=== PATIENT | female | born 1940 | race Caucasian/White ===

== ENCOUNTER 2023-02-12 13:30 | Outpatient (CLI) | payer OTHER, MEDICARE, SELFPAY ==
[2023-02-12 14:13] LABS: Alanine Aminotransferase 19 U/L (6-35); Albumin Level 4.2 g/dL (3.5-5.1); Alkaline Phosphatase 45 U/L (38-126); Anion Gap 4 mmol/L (8-16); Aspartate Amino Transferase 21 U/L (14-36); Blood Urea Nitrogen 14 mg/dL (7-17); Calcium 8.9 mg/dL (8.4-10.2); Carbon Dioxide 30 mmol/L (22-30); Chloride 104 mmol/L (98-107); Estimated Glomerular Filt Rate 48; Glucose 91 mg/dL (65-110); Magnesium 1.9 mg/dL (1.6-2.3); Potassium 3.8 mmol/L (3.4-5.0); Sodium 138 mmol/L (137-145)
== END 2023-02-12 13:31 | disposition home or self-care (01) ==
PROVIDERS: PCP Family Medicine Sports Medicine; Visit Provider Family Medicine Sports Medicine
DX: R25.2 Cramp and spasm (principal)
CPT/HCPCS: 36415; 80053; 83735

== ENCOUNTER 2023-07-25 16:55 | Emergency (ER) | payer OTHER, MEDICAID, SELFPAY ==
[2023-07-25 17:05] VITALS: BP 136/81; PULSE 81; RESP 20; TEMP 36.8; O2SAT 99
--- NOTE | 2023-07-25 17:09 | ED.GENADULT ---
HPI - General Adult General Chief complaint: Skin/Abscess/Foreign Body Stated complaint: Rash Time Seen by Provider: 07/25/23 16:59 Source: patient, RN notes reviewed and old records reviewed Mode of arrival: ambulatory Limitations: no limitations History of Present Illness HPI narrative: 83-year-old female presents to [facility] with complaint of rash to left arm and right leg this started 5 weeks ago. Patient states rash is pruritic. Patient states think she is scratching sleep. Patient seen by primary care physician and states was given lorazepam and Banophen. Patient states has had no improvement. patient and patient's granddaughter requesting strep test, states knew someone who got a rash from strep. MD complaint: Steroids as directed. Cetirizine (Zyrtec) daily Can take Benadryl at nig Onset (ago): week(s) (5) Location: upper extremity and lower extremity Related Data Home Medications Medication Instructions Recorded Confirmed albuterol sulfate 90 mcg/actuation inhalation 07/25/23 07/25/23 aerosol inhaler amlodipine 5 mg tablet mg 07/25/23 apixaban 5 mg tablet (Eliquis) mg 07/25/23 atorvastatin 40 mg tablet mg 07/25/23 enalapril maleate 20 mg tablet mg 07/25/23 fluticasone fur. 200 mcg-umeclid inhalation 07/25/23 62.5 mcg-vilant 25 mcg inhalat.powder (Trelegy Ellipta) furosemide 40 mg tablet mg 07/25/23 isosorbide mononitrate 60 mg mg PO 07/25/23 tablet,extended release 24 hr metoprolol succinate 100 mg mg PO 07/25/23 tablet,extended release 24 hr pantoprazole 40 mg tablet,delayed mg PO 07/25/23 release potassium chloride 10 mEq meq 07/25/23 capsule,extended release sucralfate 1 gram tablet 07/25/23 Allergies Allergy/AdvReac Type Severity Reaction Status Date / Time Honey Bee Allergy Intermediate HIVES Uncoded 07/25/23 17:22 Review of Systems Constitutional: Constitutional: Reports no additional constitutional complaints and Denies fever(s) Eyes: Eyes: Reports no additional eye complaints ENT: Reports system reviewed and no additional complaints, except as documented and Denies sore throat Cardiovascular: Cardiovascular: Reports no additional cardiovascular complaints Respiratory: Respiratory: Reports no additional respiratory complaints Integumentary/Breasts: Skin/Breast: Reports pruritus, Reports lesions and Reports rash Neurologic: Reports system reviewed and no additional complaints, except as documented PMFSH Past Medical History Medical History High cholesterol Hypertension Comments At the time of my signature, I reviewed and agree with the nursing past medical, surgical, social, and family history. There is no relevant family history pertinent to the patient complaint. Exam Const: General: cooperative, healthy appearing, no acute distress and well nourished Nutritional Appearance: well nourished Orientation/consciousness: patient oriented x3 Limitations: no limitations HENMT: Head: normal to inspection and normocephalic Ears: external ears normal, TM's normal bilaterally, mastoids normal and Abnormal EAC present Face/Nose/Sinus: normal facial exam Face and sinus: normal facial exam Mouth: Yes Normal oral and palatal mucosa present, Yes oropharynx normal and Yes moist mucous membranes Throat: posterior oropharynx normal, tonsils normal, uvula midline and no uvular edema Eyes: General: appearance normal, both eyes and all related structures Sclera: sclerae normal Pupils: Equal, round and reactive pupils present Resp: Effort & Inspection: normal respiratory effort, able to speak in complete sentences, no audible wheezes, no cough, no respiratory distress and no retractions Auscultation: clear to auscultation bilaterally, no crackles, no rales, no rhonchi and no wheezes Cardio: Rate: regular rate Rhythm: regular rhythm Skin: General skin exam: erythema, excoriation and rashes Neuro: Gener
== END 2023-07-25 17:38 | disposition home or self-care (01) ==
PROVIDERS: Emergency Provider Nurse Practitioner; PCP Family Medicine Sports Medicine
DX: L23.9 Allergic contact dermatitis, unspecified cause (principal); E78.00 Pure hypercholesterolemia, unspecified; I10 Essential (primary) hypertension
CPT/HCPCS: 87880; 99213; G0463

== ENCOUNTER 2025-07-16 18:24 | Inpatient (IN) | payer OTHER, MEDICAID, SELFPAY ==
[2025-07-16] VITALS (20 sets, daily range): BP systolic 113–156; BP diastolic 73–83; PULSE 70–87; RESP 15–35; TEMP 37.5; O2SAT 90–95
--- NOTE | ~2025-07-16 | XR_ITS ---
EXAMINATION: XR chest 2V, 07/16/2025 18:50 AUDIOVISUAL TECHNICIAN HISTORY: SOB, cough COMPARISON: No comparisons available. Technique: 2 views obtained. Findings: Moderate pulmonary venous congestion. Bilateral infiltrates most marked left lower lobe. No pneumothorax. Moderate cardiomegaly. Mediastinal and hilar contours are within normal limits. Poststernotomy. Right pacemaker. Impression: CHF. Superimposed probable pneumonia Reviewed, dictated and finalized at location P. OVISUAL TECHNICIAN Impression: CHF. Superimposed probable pneumonia
--- OUTSIDE RECORDS SUMMARY | 2025-07-16 17:45 | XMS_ITS | Encounter Summary ---
Author Organization [facility] Address [address] [place] [address] Care Team Providers Care Rate Clerk Passenger Name Role Phone Giles Ronquillo MD Unavailable Giles Ronquillo MD Primary Care Provider [phone] Reason for Visit * Reason Comments Sick Visit Encounter Details Date Type Department Care Team (Late st Contact Info) Description 07/16/2025 5:45 PM RV SERVICE TECHNICIAN Office Visit [facility] at [address] [address] Kandy Perez NP 2 [facility] [address] [place] [address] Shortness of breath (Primary Dx); History of COPD; History of CHF (congestive heart failure); Nausea and vomiting, unspecified vomiting type Social History Tobacco Use Types Packs/Day Years Used Date Smoking Tobacco: Former Personal Safety Answer Date Recorded Have you ever been in or are you currently in a harmful physical or emotional relationship or is someone making you feel afraid or unsafe? Denies 01/26/2023 Comments Unknown Sex and Gender Information Value Date Recorded Sex Assigned at Not on file Legal Sex Female 4:20 AM RV SERVICE TECHNICIAN Gender Identity Not on file Sexual Orientation Not on file documented as of this encounter Last Filed Vital Signs Vital Sign Reading Time Taken Comments Blood Pressure 138/84 07/16/2025 5:40 PM RV SERVICE TECHNICIAN Pulse 70 07/16/2025 5:40 PM RV SERVICE TECHNICIAN Temperature - - Respiratory Rate 28 07/16/2025 5:40 PM RV SERVICE TECHNICIAN Oxygen Saturation 91% 07/16/2025 5:40 PM RV SERVICE TECHNICIAN Inhaled Oxygen Concentration - - Weight 94 kg (207 lb 4.8 oz) 07/16/2025 5:27 PM RV SERVICE TECHNICIAN Height - - Body Mass Index 36.72 01/26/2023 11:11 AM CDT documented in this encounter Functional Status documented as of this encounter Plan of Treatment Not on file documented as of this encounter Visit Diagnoses Diagnosis Shortness of breath- Primary History of COPD History of CHF (congestive heart failure) Personal history of other diseases of circulatory system Nausea and vomiting, unspecified vomiting type documented in this encounter Administered Medications Inactive Administered Medications - up to 3 most recent administrations Medication Order MAR Action Action Date Dose Rate Site albuterol 2.5 mg /3 mL (0.083 %) nebulizer solution 2.5 mg 2.5 mg, nebulization, Once, On 07/16/25 at 1815, For 1 doseIndications:Shortness of breath Given 07/16/2025 6:00 PM RV SERVICE TECHNICIAN 2.5 mg documented in this encounter Orders Medications Ordered That Eliceo ht Not Have Been Administered Count Last Ordered Date First Ordered Date albuterol 2.5 mg /3 mL (0.08 3 %) nebulizer solution 2.5 mg 1 07/16/2025 documented in this encounter Care Teams Rate Clerk Passenger Relationship Specialty Start Date End Date Giles Ronquillo MD [address] [id number] PCP - General Sports Medicine 06/11/23 Giles Ronquillo MD [address] [facility] [address] [place] [address] 12/16/17 documented as of this encounter
--- NOTE | 2025-07-16 18:27 | ECG_ITS ---
Test Date: 2025-07-16 18:43:29 Measurements Intervals [place] Rate: 73 P: 0 MD: 0 QRS: 265 QRSD: 152 T: -60 QT: 482 QTc: 532 Interpretive Statements ELECTRONIC VENTRICULAR PACEMAKER Electronically Signed On 07-17-2025 00:12:43 COMPUTER FORENSICS TECHNICIAN by Tayo Ventura D.O
[2025-07-16 18:42] LABS: Hematocrit 37.5 % (37.0-47.0); Hemoglobin 11.7 g/dL (12.0-15.0); Immature Granulocyte Percent A 0.4 % (0-0.5); Lymphocytes Absolute Auto 1.54 K/mm3 (0.9-3.2); Mean Corpuscular HGB Conc 31.2 g/dl (32-36); Mean Corpuscular Hemoglobin 25.1 pg (26-34); Mean Corpuscular Volume 80.3 fl (80-100); Nucleated Red Blood Cells Absolute Auto 0.000 K/mm3 (0.0-0.012); Nucleated Red Blood Cells Perc 0.0 % (0.0-0.2); Platelet Count Result 331 k/mm3 (150-375); Red Blood Count 4.67 M/mm3 (4.2-5.4); White Blood Count 20.3 K/mm3 (4.5-10.0)
[2025-07-16 18:59] LABS: Alanine Aminotransferase 16 U/L (6-35); Albumin Level 4.3 g/dL (3.5-5.1); Alkaline Phosphatase 62 U/L (38-126); Anion Gap 11 mmol/L (4-12); Aspartate Amino Transferase 20 U/L (14-36); Bilirubin,Total 3.3 mg/dL (0.2-1.3); Blood Urea Nitrogen 11 mg/dL (7-17); Calcium 9.1 mg/dL (8.4-10.2); Carbon Dioxide 22 mmol/L (22-30); Chloride 103 mmol/L (98-107); Estimated CRCL calculation 54 ml/min; Estimated Glomerular Filt Rate > 60; Glucose 135 mg/dL (65-110); Potassium 3.5 mmol/L (3.4-5.0); Sodium 136 mmol/L (137-145); Total Protein 8.0 g/dL (6.3-8.2)
[2025-07-16 19:02] LABS: Ovalocytes Occasional; Schistocytes None Seen
--- OUTSIDE RECORDS SUMMARY | 2025-07-16 19:18 | XMS_ITS | Patient Health Record ---
Author Organization [facility] Address [address] [place], [place] [id number] Care Team Providers Care Community Health Specialist Name Role Phone DELILAH Christy Unavailable Reason For Referral No Information Medications Medication SIG (Take, Route, Frequency, Duration) Notes Start Date End Date Status clobetasol propionate 0.0005 MG/MG Topical Ointment CUTANEOUS clobetasol propionate 0.0005 MG/MG Topical OintmentOriginal Medicationclobetasol propionate 0.0005 MG/MG Topical Ointment *Reorder from [employer] for eRx and Interaction Alerts* 09/14/2013 Active Social History Social History Additional Details Category Social Info Options Details Migrated Social History Migrated Social History History of tobacco use : , Smoking Status : Former smoker Plan Of Treatment No Information Insurance Providers Payer Name Payer Address Payer Phone Subscriber Number Group Number Insured Name Patient Relationship to Insured Coverage Start Date Coverage End Date [employer]. [address] [place] [id number] [employer] Self - patient is the insured
--- OUTSIDE RECORDS SUMMARY | 2025-07-16 19:18 | XMS_ITS | Clinical Summary ---
Author Organization [facility] Address [address] [place] [address] Phone Care Team Providers Care Weather Forcaster Name Role Phone Giles Ronquillo MD Unavailable Giles Ronquillo MD Primary Care Provider [phone] Allergies Active Allergy Reactions Criticality Noted Date Comments Venom-Honey Bee Swelling High 07/16/2018 Wasp Venom Swelling High 04/12/2020 Medications PROAIR HFA 90 mcg/actuation inhaler 02/13/2018 Active calcium carbonate-vitami n D3 (CALCIUM 600 + D,3,) 600 mg calcium- 200 unit capsule Take 1 tablet by mouth. 09/28/2014 Active cranberry 500 mg capsule Take 500 mg by mouth. 09/28/2014 Active enalapril (VASOTEC) 20 mg tablet Take 20 mg by mouth. 03/05/2018 Active furosemide (LASIX) 40 mg tablet Take 40 mg by mouth. 03/08/2018 Active isosorbide mononitrate ER (IMDUR) 30 mg 24 hr tablet 03/05/2018 Active lutein-zeaxanthi n 25-5 mg capsule Take 1 tablet by mouth. 03/02/2013 Active metoprolol (LOPRESSOR) 50 mg tablet 03/05/2018 Active nitroglycerin (NITROSTAT) 0.4 mg SL tablet 12/15/[address] (PROTONIX) 40 mg EC tablet Take 40 mg by mouth. 05/07/2017 Active potassium chloride ER (potassium chloride ER) 10 mEq CR tablet Take 10 mEq by mouth. 03/05/2018 Active STIOLTO RESPIMAT 2.5-2.5 mcg/actuation mist 02/13/2018 Active clopidogrel (PLAVIX) 75 mg tablet Take 75 mg by mouth. 08/19/2018 Active atorvastatin (LIPITOR) 80 mg tablet Take 80 mg by mouth daily Active Hospital, Clinic, or Other Facility Administered Medication Ordered Dose Route Frequency Start Date End Date Status albuterol 2.5 mg /3 mL (0.083 %) nebulizer solution 2.5 mgIndications:Shortness of breath 2.5 mg nebu Once 07/16/2025 07/16/2025 Ended Active Problems Problem Noted Date Diagnosed Date Renal mass 07/15/2017 Encounters Date Type Department Care Team Description 07/16/2025 5:45 PM TECHNOLOGY INFUSION SPECIALIST Office Visit [facility] Care at [address] [address] Kandy Perez NP Shortness of breath (Primary Dx); History of COPD; History of CHF (congestive heart failure); Nausea and vomiting, unspecified vomiting type 04/26/2025 11:20 AM CDT Office Visit [facility] [address] [place] [address] Advanced Medicine 11th [place] [address] [place] [address] He Hernandez MD Renal mass (Primary Dx) 04/26/2025 9:32 AM CDT - 04/26/2025 11:59 PM CDT Hospital Encounter [facility] [address] [place] [id number] He Hrenandez MD Renal mass Discharge Disposition: Discharge to home or self care from Last 3 Months Surgical History Surgery Date Site/Laterality Comments CORONARY ARTERY BYPASS GRAFT Medical History Medical History Date Comments Personal history of other di seases of the respiratory system History of asthma - (Added b y TW Conv) Coronary artery disease Congestive heart failure (CHF) (HCC) Family History Medical History Relation Name Comments Heart disease Father Family history of cardiac disorder - (Added by TW Conv) Cancer Mother Family history of cancer - (Added by TW Conv) Heart disease Mother Family history of cardiac disorder - (Added by TW Conv) Relation Name Status Comments Father Mother Social History Tobacco Use Types Packs/Day Years Used Date Smoking Tobacco: Former Tobacco Cessation:Counseling Given: Not Answered Personal Safety Answer Date Recorded Have you ever been in or are you currently in a harmful physical or emotional relationship or is someone making you feel afraid or unsafe? Denies 01/26/2023 Comments Unknown Sex and Gender Information Value Date Recorded Sex Assigned at Not on file Legal Sex Female 4:20 AM TECHNOLOGY INFUSION SPECIALIST Gender Identity Not on file Sexual Orientation Not on file Last Filed Vital Signs Vital Sign Reading Time Taken Comments Blood Pressure 138/84 07/16/2025 5:40 PM TECHNOLOGY INFUSION SPECIALIST Pulse 70 07/16/2025 5:40 PM TECHNOLOGY INFUSION SPECIALIST Temperature 36.6 C (97.8 F) 01/26/2023 11:11 AM CDT Respiratory Rate 28 07/16/2025 5:40 PM TECHNOLOGY INFUSION SPECIALIST Oxygen Saturation 91% 07/16/2025 5:40 PM TECHNOLOGY INFUSION SPECIALIST Inhaled Oxygen Concentration - - Weight 94 kg (207 lb 4.8 oz) 07/16/2025 5:27 PM TECHNOLOGY INFUSION SPECIALIST Height 160 cm (5' 3) 01/26/2023 11:11 AM CDT Body Mass Index 36.72 01/26/2023 11:11 AM CDT Plan of Treatment Health Maintenance Due Date Last Done Comments Depression Screening 1942 Fall Risk Assessment 1942 Hepatitis B Screening 1960 Zoster Vaccine (1 of 2) 1992 Well Visit 65+ 2007 Osteoporosis Screening-Bone Density Scan 09/29/2018 09/29/2016 Covid-19 Vaccine (5 - 2024-2 6 season) 2025 09/06/2024, 06/30/2021, 11/26/2020, Additional history exists Influenza Vaccine (#1) 2025 , 05/13/2023, 04/30/2022, Additional history exists DTaP/Tdap/Td Vaccine (2 - Td or Tdap) 01/03/2026 01/04/2016 Pneumococcal vaccine 65+ Completed 03/21/2016, 10/2013 Procedures Procedure Name Priority Date/Time Associated Diagnosis Comments CT ABDOMEN W WO CONTRAST Schedule Routine, Read Routine (OP Routine) 04/26/2025 10:26 AM CDT Renal mass from Last 3 Months Results * CT Abdomen W WO Contrast (04/26/2025 10:26 AM CDT) Anatomical Region Laterality Modality Body N/A Computed Tomogra phy 04/26/2025 10:4 2 AM CDT Impressions 04/26/2025 10:52 AM CDT Unchanged 1.1 cm probably enhancing right renal lesion which is stable dating back to 2017 and favored to be benign. Dictated by: Uli Jean MD The radiology attending physician has personally reviewed this study, and had reviewed and/or edited this written report and agrees with it. Electronically signed by: Tyron Tello M.D. Narrative 04/26/2025 10:52 AM CDT EXAMINATION: Computed tomography of the abdomen with and without intravenous contrast HISTORY: Follow-up renal lesion TECHNIQUE: Transaxial computed tomographic images of the abdomen were obtained with and without intravenous contrast according to the renal protocol after the uneventful administration of 120 mL Opti-Ray 350 intravenous contrast. COMPARISON: Multiple prior studies most recently CT dated 06/10/2023 FINDINGS: Bibasilar atelectasis. Partially imaged cardiac pacing wires. Unchanged cardiomegaly with right heart enlargement and reflux of contrast into the inferior vena cava and hepatic veins keeping with right heart dysfunction. Heterogeneous enhancement of the liver likely related to right heart dysfunction. No suspicious hepatic mass. Patent portal venous vasculature. Cholecystectomy. No intrahepatic or extra hepatic biliary ductal dilation. Normal spleen, pancreas, and adrenal glands. No hydronephrosis. Unchanged 1.1 cm likely enhancing right renal lesion which is stable dating back to 03/24/2018. Bilateral renal cysts. The imaged portions of bowel are normal in caliber without evidence of obstruction. No ascites or organized fluid collection. No intra-abdominal lymphadenopathy. Normal caliber intra-abdominal aorta with moderate calcified atherosclerosis. No suspicious osseous lesions. Procedure Note Tyron Tello MD - 04/26/2025 EXAMINATION: Computed tomography of the abdomen with and without intravenous contrast HISTORY: Follow-up renal lesion TECHNIQUE: Transaxial computed tomographic images of the abdomen were obtained with and without intravenous contrast according to the renal protocol after the uneventful administration of 120 mL Opti-Ray 350 intravenous contrast. COMPARISON: Multiple prior studies most recently CT dated 06/10/2023 FINDINGS: Bibasilar atelectasis. Partially imaged cardiac pacing wires. Unchanged cardiomegaly with right heart enlargement and reflux of contrast into the inferior vena cava and hepatic veins keeping with right heart dysfunction. Heterogeneous enhancement of the liver likely related to right heart dysfunction. No suspicious hepatic mass. Patent portal venous vasculature. Cholecystectomy. No intrahepatic or extra hepatic biliary ductal dilation. Normal spleen, pancreas, and adrenal glands. No hydronephrosis. Unchanged 1.1 cm likely enhancing right renal lesion which is stable dating back to 03/24/2018. Bilateral renal cysts. The imaged portions of bowel are normal in caliber without evidence of obstruction. No ascites or organized fluid collection. No intra-abdominal lymphadenopathy. Normal caliber intra-abdominal aorta with moderate calcified atherosclerosis. No suspicious osseous lesions. IMPRESSION: Unchanged 1.1 cm probably enhancing right renal lesion which is stable dating back to 2018 and favored to be benign. Dictated by: Uli Jean MD The radiology attending physician has personally reviewed this study, and had reviewed and/or edited this written report and agrees with it. Electronically signed by: Tyron Tello M.D. He Hernandez MD IMG CT PROCEDURES Final R esult from Last 3 Months Insurance [facility] Member Subscriber Plan / Payer (Ef fective 2017-Present) Name:B[employer]ILLA JUSTICE Relation to Subscriber:Self Name:Bonilla Justice Payer ID:[id number] (NAIC) Type:MEDICARE RISK OTHER Address: [address] [place] [id number] [facility] Member Subscriber Plan / Payer (Ef fective 2018-Present) Name:Bonilla Justice Relation to Subscriber:Self Name:Bonilla Justice Payer ID:[id number] (NAIC) Type:MEDICARE RISK OTHER Address: [address] [facility] Member Subscriber Plan / Payer (Ef fective 2018-Present) Name:Bonilla Justice Relation to Subscriber:Self Name:Bonilla Justice Payer ID:[id number] (NAIC) Type:MEDICARE RISK OTHER Address: [address] [place] [id number] [employer] Care Teams Weather Forcaster Relationship Specialty Start Date End Date Giles Ronquillo MD [address] [facility] [address] [place] [address] PCP - General Sports Medicine 06/11/23 Giles Ronquillo MD [address] [facility] [address] [place] [address] 12/16/17
--- OUTSIDE RECORDS SUMMARY | 2025-07-16 19:18 | XMS_ITS | Clinical Summary ---
Author Organization [facility] Address [address], [address] [address] Phone Care Team Providers Care Marketing Regional Consultant Name Role Phone Giles Ronquillo MD Primary Care Provider [phone] Medications sucralfate (CARAFATE) 1 GM Tablet Take 1 Tab by mouth every 6 hours. 120 Tab 3 05/07/2017 Active pantoprazole (PROTONIX) 40 MG Tablet Delayed Response Take 1 Tab by mouth 2 times daily. 60 Tab 2 05/07/2017 Active Social History Tobacco Use Types Packs/Day Years Used Date Smoking Tobacco: Never Assessed Comments Unknown Sex and Gender Information Value Date Recorded Sex Assigned at Not on file Legal Sex Female 8:30 AM CDT Gender Identity Not on file Sexual Orientation Not on file Plan of Treatment Health Maintenance Due Date Last Done Comments Hepatitis C Virus (HCV) Screening 1940 TdaP Immunization 1940 Pneumococcal Immunization (5 0+ years) (1 of 1 - PCV) 1992 Zoster Immunization (1 of 2) 1992 Respiratory Syncytial Virus (RSV) Immunization (Adult) (1 - 1-dose 75+ series) 2017 Medicare Initial AWV [id number] 08/31/2017 Influenza Immunization (#1) 2025 SARS-COV-2 Immunization ( - season) 2025 Hepatitis B Immunization Aged Out No longer eligible based on patient's age to complete this topic Human Papillomavirus (HPV) Immunization Aged Out No longer eligible b ased on patient's age to complete this topic Meningococcal Immunization (ACWY) Aged Out No longer eligible based on patient's age to complete this topic Rotavirus Immunization Aged Out No lo nger eligible based on patient's age to complete this topic Insurance MEDICARE C [employer] Care Teams Marketing Regional Consultant Relationship Specialty Start Date End Date Giles Ronquillo MD [address] [address] PCP - General Family Medicine 05/01/17
--- OUTSIDE RECORDS SUMMARY | 2025-07-16 19:18 | XMS_ITS | Encounter Summary ---
Author Organization [facility] Address [address] [place] [address] Care Team Providers Care Microfilm Processor Name Role Phone Giles Ronquillo MD Primary Care Provider [phone] Reason for Visit * Reason Onset Date Comments Appointment 01/19/2024 Encounter Details Date Type Department Care Team (Late st Contact Info) Description 01/19/2024 Telephone [facility] - General Dermatology [address] [place] [address] Zena Botello MD [address] [facility] [address] [place] [address] Appointment Social History Tobacco Use Types Packs/Day Years Used Date Smoking Tobacco: Unknown AUDIT-C Answer Date Recorded Q1: How often do you have a drink containing alcohol? Never 01/13/2024 Q2: How many drinks containi ng alcohol do you have on a typical day when you are drinking? Patient does not drink Q3: How often do you have si x or more drinks on one occasion? Never 01/13/2024 Overall Financial Resource Strain (CARDIA) Answe r Date Recorded How hard is it for you to pa y for the very basics like food, housing, medical care, and heating? Somewhat hard 01/13/2024 [facility] [place] [facility] Occupat ional Health - Occupational Stress Questionnaire Answer Date Recorded Do you feel stress - tense, restless, nervous, or anxious, or unable to sleep at night because your mind is troubled all the time - these days? Not at all 01/13/2024 Hunger Vital Sign Answer Date Recorded Within the past 12 months, y ou worried that your food would run out before you got the money to buy more. Never true 01/13/20 24 Within the past 12 months, t he food you bought just didn't last and you didn't have money to get more. Never true 01/13/2024 PRAPARE - Transportation Answer Date Re corded In the past 12 months, has l ack of transportation kept you from medical appointments or from getting medications? Yes 12/29 In the past 12 months, has l ack of transportation kept you from meetings, work, or from getting things needed for daily living? Yes 01/13/2024 Housing Stability Vital Sign Answer [place] e Recorded In the last 12 months, was t here a time when you were not able to pay the mortgage or rent on time? No 01/13/2024 In the last 12 months, how many places have you lived? 1 01/13/2024 In the last 12 months, was t here a time when you did not have a steady place to sleep or slept in a fpc (including now)? No 01/13/2024 Comments Unknown Sex and Gender Information Value Date Recorded Sex Assigned at Female 01/15/2024 9:11 PM CDT Legal Sex Female 11:56 AM CDT Gender Identity Female 01/15/2024 9:11 PM CDT Sexual Orientation Not on file documented as of this encounter Functional Status * Is person deaf or have serious hearing difficulty? Answer Date of Assessment Author Yes 01/13/2024 5:27 PM CDT Pamela Lee RN * Is person blind or have serious difficulty seeing? Answer Date of Assessment Author No 01/13/2024 5:27 PM CDT Pamela Lee RN * Does person have serious difficulty walking/climbing stairs? Answer Date of Assessment Author No 01/13/2024 5:27 PM CDT Pamela Lee RN * Does person have difficulty dressing/bathing? Answer Date of Assessment Author No 01/13/2024 5:27 PM CDT Pamela Lee RN * Does person have difficulty doing errands alone? Answer Date of Assessment Author No 01/13/2024 5:27 PM CDT Pamela Lee RN documented as of this encounter Mental Status * Does person have difficulty concentrating/remembering/making decisions? Answer Entry Date Author No 01/13/2024 5:27 PM CDT Pamela Lee RN documented in this encounter Miscellaneous Notes * Telephone Encounter - Mehul Harman - 01/27/2024 9:34 AM CDT February 07 at 11:[address] Botello for patient consult per Dr. Roblero Upon speaking with patient's daughter, I discovered that patient did not want to return to dermatology. I cancelled the appointment with Dr. Botello. * Telephone Encounter - Zena Botello MD - 01/26/2024 1:42 PM CDT PCCs, Please reschedule this appointment. This a hospital follow up appointment that I do at [facility] on Mondays, Tuesdays and Wednesdays at 11:30 and/or 12:[address]. [address] Roblero ([facility] consult resident) and Florence franz to assist if needed. * Telephone Encounter - Dionicio Khoury - 01/19/2024 10:39 AM CDT Pt daughter called to reschedule tomorrows appointment with Dr Botello. Please assist and advise. documented in this encounter Plan of Treatment Not on file documented as of this encounter Visit Diagnoses Not on filedocumented in this encounter Care Teams Microfilm Processor Relationship Specialty Start Date End Date Giles Ronquillo MD [address] [facility] [address] [place] [id number] PCP - General Family Medicine 01/11/24 documented as of this encounter
--- OUTSIDE RECORDS SUMMARY | 2025-07-16 19:18 | XMS_ITS | Clinical Summary ---
Author Organization [facility] Address [address] [facility] [place] [address] Care Team Providers Care Donor Relations Manager Name Role Phone Giles Ronquillo MD Primary Care Provider [phone] Source Comments [facility],non-owned Affiliates and Associated Physician Practices is amultiple site organization consisting of ambulatory clinics and hospital sitesin [place], [place], [place] and [place]. This disclosure is being madepursuant to the Care Everywhere program and may not contain all information available regarding this patient. Last updated 18.[facility] Allergies No known active allergies Medications * Be aware that medications may not be up to date on this document. Alwaysverify current medications with the patient. albuterol HFA (Proventil; Ventolin; Proair) 108 (90 Base) MCG/ACT inhaler Inhale 2 (two) puffs by mouth every 4 hours as needed for Shortness of Breath or Wheezing Active amLODIPine (Norvasc) 5 MG tablet Take 1 (one) tablet by mouth once daily Active atorvastatin (Lipitor) 40 MG tablet Take 1 (one) tablet by mouth at bedtime Active clobetasol (Temovate) 0.05 % cream Apply to affected area 2 times daily Active apixaban (Eliquis) 5 MG tablet Take 1 (one) tablet by mouth 2 times daily Active isosorbide mononitrate CR 24hr (Imdur) 60 MG tablet Take 1 (one) tablet by mouth once daily Active metoprolol succinate XL 24hr (Toprol XL) 100 MG tablet Take 1 (one) tablet by mouth 2 times daily Active pantoprazole EC (Protonix) 40 MG tablet Take 1 (one) tablet by mouth 2 times daily Active budesonide-formo terol (Symbicort) 160-4.5 MCG/ACT inhaler INHALE 2 PUFFS BY MOUTH TWO TIMES A DAY 10.2 g 4 Active tiotropium (Spiriva Respimat) 2.5 MCG/ACT inhaler INHALE 2 PUFFS BY MOUTH ONCE DAILY 4 g 4 Active Active Problems Problem Noted Date Diagnosed Date Elevated erythrocyte sedimentation rate 01/11/20 24 Elevated C-reactive protein (CRP) 01/11/2024 Other hyperlipidemia 01/11/2024 Pacemaker 01/11/2024 BRODY (obstructive sleep apnea) 01/11/2024 Longstanding persistent atrial fibrillation 12/29 Class 2 severe obesity due t o excess calories with serious comorbidity in adult 01/11/2024 Primary hypertension 01/11/2024 Coronary artery disease invo lving levelock coronary artery of levelock heart without angina pectoris 01/11/2024 COPD (chronic obstructive pulmonary disease) 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 Somewhat hard 01/13/2024 [facility] [place] of Occupat ional Health - Occupational Stress [...] place to sleep or slept in a detention (including now)? No 01/13/2024 Comments Unknown Sex and Gender Information Value Date Recorded Sex Assigned at Female 01/15/2024 9:11 PM CDT Legal Sex Female 11:56 AM CDT Gender Identity Female 01/15/2024 9:11 PM CDT Sexual Orientation Not on file Last Filed Vital Signs Vital Sign Reading Time Taken Comments Blood Pressure 111/72 01/15/2024 11:48 AM CDT Pulse 79 01/15/2024 11:48 AM CDT Temperature 36.8 C (98.2 F) 01/15/2024 11:48 AM CDT Respiratory Rate 17 01/15/2024 8:42 AM CDT Oxygen Saturation 92% 01/15/2024 8:42 AM CDT Inhaled Oxygen Concentration - - Weight 96.3 kg (212 lb 6.4 oz) 01/11/2024 1:22 A M CDT Height 162.6 cm (5' 4) 01/11/2024 1:22 AM CDT Body Mass Index 36.46 01/11/2024 1:22 AM CDT Plan of Treatment Health Maintenance Due Date Last Done Comments MEDICARE AWV 12 MONTHS 1942 DTAP/TDAP/TD VACCINES (1 - Tdap) 1961 PNEUMOCOCCAL VACCINE 50+ (1 of 2 - PCV) 1961 ZOSTER VACCINE (1 of 2) 1992 Respiratory Syncytial Virus (RSV) Vaccine Pt: or over 60 yrs (1 - 1-dose 75+ series) 2017 DIABETES RETINOPATHY SCREENING 01/11/2024 DIABETES-FOOT EXAM WITH MONOFILAMENT 01/11/2024 DIABETES-HGB A1C 01/11/2024 DEPRESSION SCREENING 08/31/2024 DIABETES - URINE PROTEIN SCREENING 08/31/2024 DIABETES-SERUM CREATININE 01/10/2025 01/11/2024 COVID-19 VACCINE ( season) 2025 05/21/2022, 11/30/2021, 06/30/2021, Additional history exists INFLUENZA VACCINE (#1) 2025 , 04/30/2022, 05/05/2017, Additional history exists BONE DENSITY TESTING Completed 09/29/2016 HEPATITIS B VACCINE Aged Out No longe r eligible based on patient's age to complete this topic HIB VACCINE Aged Out No longer eligi ble based on patient's age to complete this topic HPV VACCINE Aged Out No longer eligi ble based on patient's age to complete this topic MENINGOCOCCAL (Group B) VACCINE SHARED DECISION-MAKING Aged Out No longer eligible based on patient's age to complete this topic MENINGOCOCCAL GROUPS A/C/Y/W VACCINE Aged Out No longer eligible based on patient's age to complete this topic Procedures Procedure Name Priority Date/Time Associated Diagnosis Comments COMPREHENSIVE METABOLIC PANEL STAT 01/11/2024 4:37 AM CDT Rash from Last 3 Months or Most Recently Relevant to Health Maintenance Results * (ABNORMAL) COMPREHENSIVE METABOLIC PANEL (01/11/2024 4:37 AM CDT) Pathologist [facility] BUN 13 7 - 26 mg/dL 01/11/2024 6:22 AM [facility] Creatinine 1.06(H) 0.56 - 0.96 mg/dL 01/11/2024 6:22 AM [facility] Sodium 134(L) 136 - 145 mmol/L 01/11/2024 6:22 AM [facility] Potassium 4.1 3.5 - 4.5 mmol/L 01/11/2024 6:22 AM [facility] Chloride 103 98 - 107 mmol/L 01/11/2024 6:22 AM [facility] CO2 20(L) 22 - 29 mmol/L 01/11/2024 6:22 AM [facility] Glucose 82 70 - 115 mg/dL 01/11/2024 6:22 AM [facility] Calcium 9.5 8.4 - 10.2 mg/dL 01/11/2024 6:22 AM [facility] Protein Total 7.2 6.0 - 8.3 g/dL 01/11/2024 6:22 AM [facility] Albumin 2.7(L) 3.4 - 5.0 g/dL 01/11/2024 6:22 AM [facility] Bilirubin Total 1.0 0.2 - 1.2 mg/dL 01/11/2024 6:22 AM [facility] Alkaline Phosphatase 79 40 - 150 U/L 01/11/2024 6:22 AM [facility] ALT 31 5 - 55 U/L 01/11/2024 6:22 AM [facility] AST 29 5 - 34 U/L 01/11/2024 6:22 AM [facility] Anion Gap 11 6 - 16 01/11/2024 6:22 AM [facility] BUN/Creatinine Ratio 12 7 - 23 01/11/2024 6:22 AM [facility] Osmolality Calculated 277 275 - 295 mOsm/kg 01/11/2024 6:22 AM [facility] Albumin/Globulin Ratio 0.6(L) 1.1 - 2.3 01/11/2024 6:22 AM [facility] eGFR by CKD-EPI 53(L) >=90 mL/min/1.7 3 m2 01/11/2024 6:22 AM CDT [facility] Blood BLOOD SPECIMEN / Unknown Lab Venipuncture / Unknown 01/11/2024 4:37 AM CDT 01/11/2024 5:44 AM CDT [facility] [employer] LAB - CHEMISTRY ORD ERABLES Final Result [facility] [address] [place] [address], [place] [phone] from Last 3 Months or Most Recently Relevant to Health Maintenance Insurance [facility] MEDICARE Advance Directives * Full Code (Latest Code Status on File) Date Activated Date Inactivated Comments 01/11/2024 4:26 AM 01/15/2024 7:47 PM Care Teams Donor Relations Manager Relationship Specialty Start Date End Date Giles Ronquillo MD [address] [place] [address]'[place] [address] PCP - General Family Medicine 01/11/24
--- NOTE | 2025-07-16 19:48 | ED_ITS ---
HPI - General Adult General Chief complaint: Shortness of Breath/Dyspnea Stated complaint: Dyspnea Time Seen by Provider: 07/16/25 18:49 History of Present Illness HPI narrative: This is an 85-year-old female with history of COPD and CHF presenting for difficulty breathing. Patient says that starting yesterday she was not feeling well. When she woke up this morning she felt short of breath, with a productive cough and a sharp pain in the center of her chest. She also had nausea vomiting and diarrhea. She has not been able to eat anything for the last 2 days due to decreased appetite. She was seen in urgent care 3 evaluated for strep throat due to a family member having strep throat, but they felt that she was too short of breath center to the ED to be evaluated. She received a breathing treatment urgent care and steroids from the EMS team. Related Data Home Medications ?Medication ?Instructions ?Recorded ?Confirmed ?Last Taken ?Type albuterol sulfate 90 mcg/actuation inhalation 07/25/23 07/25/23 Unknown History aerosol inhaler amlodipine 5 mg tablet mg 07/25/23 Unknown History apixaban 5 mg tablet (Eliquis) mg 07/25/23 Unknown Hi story atorvastatin 40 mg tablet mg 07/25/23 Unknown History enalapril maleate 20 mg tablet mg 07/25/23 Unknown Hi story fluticasone fur. 200 mcg-umeclid inhalation 07/25/23 Unknown History 62.5 mcg-vilant 25 mcg inhalat.powder (Trelegy Ellipta) furosemide 40 mg tablet mg 07/25/23 Unknown History isosorbide mononitrate 60 mg mg PO 07/25/23 Unknown H istory tablet,extended release 24 hr metoprolol succinate 100 mg mg PO 07/25/23 Unknown Hi story tablet,extended release 24 hr pantoprazole 40 mg tablet,delayed mg PO 07/25/23 Unkn own History release potassium chloride 10 mEq meq 07/25/23 Unknown Histor y capsule,extended release sucralfate 1 gram tablet 07/25/23 Unknown History Allergies Allergy/AdvReac Type Severity Reaction Status Date / Time Honey Bee Allergy Intermediate HIVES Uncoded 07/25/23 17:22 [facility] Past Medical History Medical History High cholesterol Hypertension Exam 2 Narrative: APPEARANCE: No apparent distress. Head: atraumatic. EYES: EOMI, NOSE: Atraumatic NECK: Trachea midline RESPIRATORY: No increased rate of breathing CARDIOVASCULAR: RRR, ABDOMINAL: Non-distended MUSCULOSKELETAl: No obvious deformities NEURO: Alert. Moving 4/4 extremities SKIN:: Warm, dry. Normal color PSYCHIATRIC: Normal affect Course Vital Signs Vital signs: Vital Signs Pulse Rate 87 07/16/25 18:28 Respiratory Rate 21 H 07/16/25 18:28 Temperature 99.5 F 07/16/25 18:29 Pulse Rate 70 07/16/25 21:15 Respiratory Rate 24 H 07/16/25 21:15 Blood Pressure 116/74 07/16/25 21:15 Pulse Oximetry 93 07/16/25 21:54 Oxygen Delivery Nasal Cannula 07/16/25 21:54 Oxygen Flow Rate 2 07/16/25 21:54 Medical Decision Making MDM Narrative Medical decision making narrative: -Course: 85-year-old female with history of COPD and CHF presenting for pneumonia symptoms. Patient is hypoxic on room air placed on supplemental oxygen. She has scattered rhonchi on exam. White count is elevated at 20.3 although she did receive steroids prior to arrival. Chest x-ray interpreted by Radiology as CHF superimposed pneumonia. Patient is clinically dry with chapped lips and no peripheral edema. Patient be given cautious fluid resuscitation. Started on antibiotics to cover community-acquired pneumonia. Patient be admitted the hospital for further management of her hypoxic respiratory failure and pneumonia. -DDX includes but is not limited to: COPD, CHF, sepsis, viral syndrome Vital Signs Vital Signs: Vital Signs Pulse Rate 87 07/16/25 18:28 Respiratory Rate 21 H 07/16/25 18:28 Temperature 99.5 F 07/16/25 18:29 Pulse Rate 70 07/16/25 21:15 Respiratory Rate 24 H 07/16/25 21:15 Blood Pressure 116/74 07/16/25 21:15 Pulse Oximetry 93 07/16/25 21:54 Oxygen Delivery Nasal Cannula 07/16/25 21:54 Oxygen Flow Rate 2 07/16/25 21:54 Lab Data 07/16/25 18:37 07/16/25 18:37 Labs: Lab Results 07/16/25 07/16/25 07/16/25 Range/Units 18:37 20:36 21:49 WBC 20.3 H (4.5-10.0) K/mm3 RBC 4.67 (4.2-5.4) M/mm3 Hgb 11.7 L (12.0-15.0) g/dL Hct 37.5 (37.0-47.0) % MCV 80.3 (80-100) fl MCH 25.1 L (26-34) pg MCHC 31.2 L (32-36) g/dl RDW 17.6 H (11.5-14.5) % Plt Count 331 (150-375) k/mm3 MPV 9.0 (7.4-10.4) fl Immature Gran % (Auto) 0.4 (0-0.5) % Neut % (Auto) 85.0 H (45.5-73.1) % Lymph % (Auto) 7.6 L (18.3-44.2) % [place] % (Auto) 6.7 (2.6-8.5) % Eos % (Auto) 0.0 (0-4.4) % Baso % (Auto) 0.3 (0.2-1.2) % Lymph # (Auto) 1.54 (0.9-3.2) K/mm3 [place] # (Auto) 1.4 H (0.1-0.6) K/mm3 Eos # (Auto) 0.0 (0-0.3) K/mm3 Baso # (Auto) 0.1 (0.0-0.1) K/mm3 Abs Immat Gran (auto) 0.09 H (0.00-0.031) K/mm3 Absolute Neuts (auto) 17.3 H (1.3-6.7) K/mm3 Absolute Nucleated RBC 0.000 (0.0-0.012) K/mm3 Band Neutrophils % Not Reportable Nucleated RBC % 0.0 (0.0-0.2) % Platelet Estimate Adequate (Adequate) Ovalocytes Occasional Schistocytes None seen PT 23.7 H (11.1-14.7) Seconds INR 2.2 APTT 74.5 H (22.3-36.8) Seconds Sodium 136 L (137-145) mmol/L Potassium 3.5 (3.4-5.0) mmol/L Chloride 103 (98-107) mmol/L Carbon Dioxide 22 (22-30) mmol/L Anion Gap 11 (4-12) mmol/L BUN 11 (7-17) mg/dL Creatinine 0.75 (0.7-1.0) mg/dL Estim Creat Clear Calc 54 ml/min Estimated GFR > 60 (59 - ) Glucose 135 H (65-110) mg/dL Lactic Acid 1.7 (0.7-2.0) mmol/L Calcium 9.1 (8.4-10.2) mg/dL Total Bilirubin 3.3 H (0.2-1.3) mg/dL AST 20 (14-36) U/L ALT 16 (6-35) U/L Alkaline Phosphatase 62 (38-126) U/L Troponin I 0.027 (0.000-0.034) ng/mL C-Reactive Protein 7.2 H (<1.0) mg/dL Total Protein 8.0 (6.3-8.2) g/dL Albumin 4.3 (3.5-5.1) g/dL Lipase 51 (23-300) U/L Urine Color Urine Appearance Urine pH Ur Specific [place] Urine Protein Urine Glucose (UA) Urine Ketones Ur Blood (Man) Urine Nitrate Urine Bilirubin Urine Urobilinogen Leukocyte Esterase Rfl Influenza A (RT-PCR) Negative (Negative) Influenza B (RT-PCR) Negative (Negative) RSV (RT-PCR) Negative (Negative) SARS-CoV-2 RNA (RT-PCR) Negative (Negative) Group A Strep (PCR) Not detected (Negative) 07/16/25 Range/Units 22:38 WBC (4.5-10.0) K/mm3 RBC (4.2-5.4) M/mm3 Hgb (12.0-15.0) g/dL Hct (37.0-47.0) % MCV (80-100) fl MCH (26-34) pg MCHC (32-36) g/dl RDW (11.5-14.5) % Plt Count (150-375) k/mm3 MPV (7.4-10.4) fl Immature Gran % (Auto) (0-0.5) % Neut % (Auto) (45.5-73.1) % Lymph % (Auto) (18.3-44.2) % [place] % (Auto) (2.6-8.5) % Eos % (Auto) (0-4.4) % Baso % (Auto) (0.2-1.2) % Lymph # (Auto) (0.9-3.2) K/mm3 [place] # (Auto) (0.1-0.6) K/mm3 Eos # (Auto) (0-0.3) K/mm3 Baso # (Auto) (0.0-0.1) K/mm3 Abs Immat Gran (auto) (0.00-0.031) K/mm3 Absolute Neuts (auto) (1.3-6.7) K/mm3 Absolute Nucleated RBC (0.0-0.012) K/mm3 Band Neutrophils % Nucleated RBC % (0.0-0.2) % Platelet Estimate (Adequate) Ovalocytes Schistocytes PT (11.1-14.7) Seconds INR APTT (22.3-36.8) Seconds Sodium (137-145) mmol/L Potassium (3.4-5.0) mmol/L Chloride (98-107) mmol/L Carbon Dioxide (22-30) mmol/L Anion Gap (4-12) mmol/L BUN (7-17) mg/dL Creatinine (0.7-1.0) mg/dL Estim Creat Clear Calc ml/min Estimated GFR (59 - ) Glucose (65-110) mg/dL Lactic Acid (0.7-2.0) mmol/L Calcium (8.4-10.2) mg/dL Total Bilirubin (0.2-1.3) mg/dL AST (14-36) U/L ALT (6-35) U/L Alkaline Phosphatase (38-126) U/L Troponin I (0.000-0.034) ng/mL C-Reactive Protein (<1.0) mg/dL Total Protein (6.3-8.2) g/dL Albumin (3.5-5.1) g/dL Lipase (23-300) U/L Urine Color Pending Urine Appearance Pending Urine pH Pending Ur Specific [place] Pending Urine Protein Pending Urine Glucose (UA) Pending Urine Ketones Pending Ur Blood (Man) Pending Urine Nitrate Pending Urine Bilirubin Pending Urine Urobilinogen Pending Leukocyte Esterase Rfl Pending Influenza A (RT-PCR) (Negative) Influenza B (RT-PCR) (Negative) RSV (RT-PCR) (Negative) SARS-CoV-2 RNA (RT-PCR) (Negative) Group A Strep (PCR) (Negative) Discharge Plan Discharge Clinical Impression: Community acquired pneumonia, Hypoxic respiratory failure Patient Disposition: Home Condition: Stable Instructions: Antibiotic Form Patient Language: Montserratian Prescriptions: No Action furosemide 40 mg tablet atorvastatin 40 mg tablet potassium chloride 10 mEq capsule, extended release enalapril maleate 20 mg tablet sucralfate 1 gram tablet metoprolol succinate 100 mg tablet extended release 24 hr PO amlodipine 5 mg tablet isosorbide mononitrate 60 mg tablet extended release 24 hr PO pantoprazole 40 mg tablet,delayed release (DR/EC) PO albuterol sulfate 90 mcg/actuation HFA aerosol inhaler INHALATION Eliquis 5 mg tablet Trelegy Ellipta 200-62.5-25 mcg blister with device INHALATION triamcinolone acetonide 0.1 % cream 1 applic topical BID 7 Days Qty: 80 0RF famotidine 20 mg tablet 20 mg PO BID Qty: 7 0RF Follow-up/Referrals: Yg,Giles Collins MD [Primary Care Provider]
[2025-07-16 20:13] LABS: INR 2.2; Prothrombin Time 23.7 Seconds (11.1-14.7)
[2025-07-16 20:15] LABS: Partial Thromboplastin Time 74.5 Seconds (22.3-36.8)
[2025-07-16 20:32] LABS: CRP 7.2 mg/dL (<1.0); Lipase 51 U/L (23-300)
[2025-07-16 20:40] LABS: Troponin I 0.027 ng/mL (0.000-0.034)
[2025-07-16 21:25] LABS: Influenza A QL RT-PCR Negative (Negative); Influenza B QL RT-PCR Negative (Negative); RSV RNA, RT-PCR Negative (Negative); SARS-CoV-2 RNA PCR Negative (Negative)
[2025-07-16] MEDS: cefTRIAXone 1 GM in SODIUM CHLORIDE 0.9% IV 50 ML 100 ML IVPB (21:31)
[2025-07-16] MEDS: LACTATED RINGERS 1,000 ML 999 ML IV CONT (21:31)
--- NOTE | 2025-07-16 21:51 | PC.NURSE ---
pt refusing straight catheter and bedside commode.
--- NOTE | 2025-07-16 22:07 | PC.NURSE ---
This RN spoke with pt and stated it would be better to do a bedside commode then to walk to the bathroom due to being short of breath. pt agreed to use bedside commode.
[2025-07-16 22:34] LABS: Strep Group A RT-PCR NOT DETECTED (Negative)
[2025-07-16 23:12] LABS: Add Urine Microscopic? YES; Appearance Urine Clear (Clear); Glucose Urine UA 3+ mg/dL (Negative); Leukocyte Esterase Ur Negative LEU/UL (Negative); Need Manual Microscopic Reviewed; Nitrate Urine Negative (Negative); Non Pathogenic Casts 0-2; Specific Grav Ur 1.023 (1.001-1.035)
[2025-07-16] MEDS: DOXYCYCLINE IV 100 MG in SODIUM CHLORIDE 0.9% IV 100 ML IVPB (23:25)
[2025-07-17] VITALS (17 sets, daily range): BP systolic 100–164; BP diastolic 54–87; PULSE 69–85; RESP 16–25; TEMP 36.2–36.5; O2SAT 93–98; BMI 37.0
--- NOTE | 2025-07-17 02:02 | P.HP_ITS ---
H&P: HPI History of Present Illness Date/Time: 07/17/25 02:02 Chief Complaint: Shortness of breath Narrative: A pleasant 85-year-old female presenting to [facility] ER on 07/16/2025 with complaint shortness of breath. Has been going on for 1-2 days. She also has had a productive cough, dark sputum. Decreased appetite. Dehydrated. Had multiple bouts of watery brown diarrhea. Family member had strep throat so she went to urgent care for evaluation however was referred to the ER instead. Received steroids and breathing treatment EN route. Past medical history AFib on Eliquis status post permanent pacemaker placement, CHF, COPD, prior tobacco use disorder, hypertension, dyslipidemia. ER evaluation demonstrates WBC 27154, hemoglobin 11.7, INR 2.2, sodium 136, serum creatinine 0.75, urinalysis urobilinogen, RBCs, glucose, quad viral screen negative, group a strep PCR negative. Chest x-ray interpretation state CHF and superimposed probable pneumonia. I am currently unable to view the images due to system issue. EKG showing V paced. Patient received ceftriaxone, doxycycline, blood cultures obtained. Received 1 L lactated Ringer's. Placed on 2 L nasal cannula. Patient feels she has slight improvement of shortness of breath and more so complains of nausea. Review of Systems Review of Systems: All systems reviewed & are unremarkable except as noted in HPI and below (Subjective) [facility] Past Medical History Medical History High cholesterol Hypertension Meds Home Medications and Allergies Home Medications ?Medication ?Instructions ?Recorded ?Confirmed ?Type albuterol sulfate 90 mcg/actuation 2 puff inhalation P RN shortness of 07/25/23 07/25/23 History aerosol inhaler breath or wheezing amlodipine 5 mg tablet mg 07/25/23 History Held on 07/17/25. Instructions: Order Change apixaban 5 mg tablet (Eliquis) 5 mg Q12H 07/25/23 His tory atorvastatin 40 mg tablet 40 mg QPM 07/25/23 History enalapril maleate 20 mg tablet mg 07/25/23 History famotidine 20 mg tablet 20 mg PO BID #7 tabs 3 07/17/25 Rx fluticasone fur. 200 mcg-umeclid 1 inh inhalation 07/02 01/20 History 62.5 mcg-vilant 25 mcg inhalat.powder (Trelegy Ellipta) furosemide 40 mg tablet 40 mg 07/25/23 History isosorbide mononitrate 60 mg 60 mg PO 07/25/23 Histor y tablet,extended release 24 hr metoprolol succinate 100 mg 100 mg PO 07/25/23 Histor y tablet,extended release 24 hr pantoprazole 40 mg tablet,delayed 40 mg PO 07/25/23 H istory release potassium chloride 10 mEq 10 meq BID 07/25/23 History capsule,extended release sucralfate 1 gram tablet 1 g Q6H 07/25/23 History triamcinolone acetonide 0.1 % 1 applic topical BID 7 d ays #80 07/25/23 07/17/25 Rx topical cream grams Allergies Allergy/AdvReac Type Severity Reaction Status Date / Time Honey Bee Allergy Intermediate HIVES Uncoded 07/25/23 17:22 Vital Signs Vital Signs - 24 hr 07/16/25 18:28 07/16/25 18:29 07/16/25 18:30 Temperature 99.5 F Pulse Rate 87 78 85 Respiratory Rate 21 H 35 H 23 H Blood Pressure 156/83 H Pulse Oximetry 90 91 Oxygen Delivery Room Air Oxygen Flow Rate 07/16/25 18:31 07/16/25 18:38 07/16/25 18:38 Temperature Pulse Rate 74 70 Respiratory Rate 33 H Blood Pressure 156/83 H Pulse Oximetry 93 93 Oxygen Delivery Nasal Cannula Oxygen Flow Rate 2 07/16/25 18:42 07/16/25 18:45 07/16/25 18:46 Temperature Pulse Rate 75 77 72 Respiratory Rate 24 H 20 24 H Blood Pressure 156/83 H 113/83 Pulse Oximetry 92 91 92 Oxygen Delivery Oxygen Flow Rate 07/16/25 18:47 07/16/25 19:03 07/16/25 21:11 Temperature Pulse Rate 73 82 73 Respiratory Rate 30 H 15 27 H Blood Pressure Pulse Oximetry 92 92 Oxygen Delivery Oxygen Flow Rate 07/16/25 21:15 07/16/25 21:30 07/16/25 21:54 Temperature Pulse Rate 70 73 Respiratory Rate 24 H 31 H Blood Pressure 116/74 114/74 Pulse Oximetry 95 93 93 Oxygen Delivery Nasal Cannula Oxygen Flow Rate 2 07/16/25 22:00 07/16/25 22:45 07/16/25 23:00 Temperature Pulse Rate 70 70 71 Respiratory Rate 22 H 31 H 29 H Blood Pressure 118/73 115/78 Pulse Oximetry 92 Oxygen Delivery Oxygen Flow Rate 07/16/25 23:15 07/16/25 23:30 07/16/25 23:45 Temperature Pulse Rate 70 81 70 Respiratory Rate 23 H 21 H 20 Blood Pressure Pulse Oximetry 94 Oxygen Delivery Oxygen Flow Rate 07/17/25 00:00 07/17/25 00:15 07/17/25 00:44 Temperature Pulse Rate 70 70 80 Respiratory Rate 19 22 H 19 Blood Pressure Pulse Oximetry 95 95 95 Oxygen Delivery Oxygen Flow Rate 07/17/25 00:45 Temperature Pulse Rate 74 Respiratory Rate 25 H Blood Pressure Pulse Oximetry 95 Oxygen Delivery Oxygen Flow Rate Exam Const: General: comfortable and no acute distress HENMT: Mouth: Yes moist mucous membranes Eyes: Pupils: Equal, round and reactive pupils present Neck: Neck: supple Resp: Effort & Inspection: normal respiratory effort Other: Fine bibasilar crackles Cardio: Rate: regular rate Rhythm: regular rhythm GI: Inspection: non-distended GI Palp: Yes Soft to palpation Neuro: Motor exam (neuro): 5/5 motor strength present throughout Extrem: General: no edema H&P: Results Labs Labs: Short CBC 07/16/25 Range/Units 18:37 WBC 20.3 H (4.5-10.0) K/mm3 Hgb 11.7 L (12.0-15.0) g/dL Hct 37.5 (37.0-47.0) % Plt Count 331 (150-375) k/mm3 [facility] 07/16/25 18:37 Sodium 136 L Potassium 3.5 Chloride 103 Carbon Dioxide 22 BUN 11 Creatinine 0.75 Glucose 135 H Calcium 9.1 Cardiac Enzymes 07/16/25 Range/Units 18:37 Troponin I 0.027 (0.000-0.034) ng/mL Liver Function 07/16/25 Range/Units 18:37 Total Bilirubin 3.3 H (0.2-1.3) mg/dL AST 20 (14-36) U/L ALT 16 (6-35) U/L Alkaline Phosphatase 62 (38-126) U/L Albumin 4.3 (3.5-5.1) g/dL Urine 07/16/25 Range/Units 22:38 Urine Color Yellow (Yellow) Urine Appearance Clear (Clear) Urine pH 5.5 (5.0-9.0) Ur Specific [place] 1.023 (1.001-1.035) Urine Protein Trace (Negative) mg/dL Urine Glucose (UA) 3+ H (Negative) mg/dL Assessment and Plan Assessment and plan (1) Community acquired pneumonia: Code(s): J18.9 - Pneumonia, unspecified organism Status: Acute (2) Hypoxic respiratory failure: Code(s): J96.91 - Respiratory failure, unspecified with hypoxia Status: Acute Plan A pleasant 85-year-old female presenting to [facility] ER on 07/16/2025 with complaint shortness of breath. Has been going on for 1-2 days. She also has had a productive cough, dark sputum. Decreased appetite. Dehydrated. Had multiple bouts of watery brown diarrhea. Family member had strep throat so she went to urgent care for evaluation however was referred to the ER instead. Received steroids and breathing treatment EN route. Past medical history AFib on Eliquis status post permanent pacemaker placement, CHF, COPD, prior tobacco use disorder, hypertension, dyslipidemia. ER evaluation demonstrates WBC 23854, hemoglobin 11.7, INR 2.2, sodium 136, serum creatinine 0.75, urinalysis urobilinogen, RBCs, glucose, quad viral screen negative, group a strep PCR negative. Chest x-ray interpretation state CHF and superimposed probable pneumonia. I am currently unable to view the images due to system issue. EKG showing V paced. Patient received ceftriaxone, doxycycline, blood cultures obtained. Received 1 L lactated Ringer's. Placed on 2 L nasal cannula. Patient feels she has slight improvement of shortness of breath and more so complains of nausea. ----- Community-acquired pneumonia, severe sepsis with hypoxic respiratory failure, leukocytosis.: Continue ceftriaxone, doxycycline. Follow-up blood culture. Guaifenesin, sputum culture ordered. No shock. Patient received fluids, will not give any further due to history of CHF. Hold furosemide for now. Intake/output, daily weights, ambulate with assistance, fall precautions. Check Legionella, mycoplasma IgM, strep pneumococcus antigen. Quad viral screen negative. Check respiratory viral pathogen panel in the setting of nausea, diarrhea. Check C diff. Medication reconciliation pending, restart [employer] Eliquis. Patient wishes to be full code. Heart healthy diet. Saline lock IV. Hospitalist MIPS Advance Care Plan I have confirmed that the patient's Advanced Care Plan is present, code status is documented, or surrogate decision maker is listed in patient medical record.: Yes Medication Reconciliation I have utilized all available resources to obtain, update and review the patients current medications (includes all prescriptions, OTC, herbals, cannabis, and nutritional supplements).: Yes
[2025-07-17 05:29] LABS: Hematocrit 36.6 % (37.0-47.0); Hemoglobin 11.0 g/dL (12.0-15.0); Immature Granulocyte Percent A 0.5 % (0-0.5); Lymphocytes Absolute Auto 0.88 K/mm3 (0.9-3.2); Mean Corpuscular HGB Conc 30.1 g/dl (32-36); Mean Corpuscular Hemoglobin 24.6 pg (26-34); Mean Corpuscular Volume 81.7 fl (80-100); Nucleated Red Blood Cells Absolute Auto 0.000 K/mm3 (0.0-0.012); Nucleated Red Blood Cells Perc 0.0 % (0.0-0.2); Platelet Count Result 297 k/mm3 (150-375); Red Blood Count 4.48 M/mm3 (4.2-5.4); White Blood Count 15.3 K/mm3 (4.5-10.0)
[2025-07-17 05:55] LABS: Anisocytosis 1+; Burr Cells 1+; Ovalocytes 1+; Poikilocytosis 1+; Schistocytes None Seen
[2025-07-17 06:35] LABS: Anion Gap 12 mmol/L (4-12); Blood Urea Nitrogen 15 mg/dL (7-17); Calcium 9.3 mg/dL (8.4-10.2); Carbon Dioxide 22 mmol/L (22-30); Chloride 101 mmol/L (98-107); Estimated CRCL calculation 57 ml/min; Estimated Glomerular Filt Rate > 60; Glucose 143 mg/dL (65-110); Magnesium 2.0 mg/dL (1.6-2.3); Potassium 3.2 mmol/L (3.4-5.0); Sodium 135 mmol/L (137-145)
--- NOTE | 2025-07-17 06:42 | PC.NURSE ---
Pt morning weight was 92.7 kg. Pt was weighed in hospital bed while in pt gown. Pt states when she was first weighed she was wearing her heavy coat.
--- NOTE | 2025-07-17 08:02 | PM.IMPN ---
Progress Note: A&P Assessment and Plan (1) Sepsis: Code(s): A41.9 - Sepsis, unspecified organism Status: Acute Assessment and Plan: Meets SIRS criteria: tachypnea and leukocytosis - lactic acid: 1.7 - Received sepsis bolus Will not give any further due to history of CHF. Patient has coarse lungs sounds on exam and does not appear dry. Will resume lasix. Monitor. - suspected source: PNA - blood cultures drawn on 07/16: pending - UA: nonconcerning for infection - CXR: CHF superimposed on probable pneumonia - See plan below (2) Community acquired pneumonia: Code(s): J18.9 - Pneumonia, unspecified organism Status: Acute Assessment and Plan: CXR: CHF superimposed on probable pneumonia - started on CAP tx: azithromycin ceftriaxone on 11/30 - Viral PCR: negative for Flu/COVID/RSV - Respiratory panel panel - Sputum sample pending - Legionella, mycoplasma and pneumococcal pending - started on o2 supplementation on admission however no noted hypoxia on chart review, has since been weaned back to room air - Monitor vital signs, I&Os, neuro status and patient is a fall risk - Follow WBC, serum electrolytes, temperature curves and cultures (3) Atrial fibrillation: Code(s): I48.91 - Unspecified atrial fibrillation Status: Acute Assessment and Plan: S/p permanent pacemaker - EKG: paced HR 73 - Current home medication: metoprolol 100 mg daily and eliquis 5 mg q12 (4) CHF (congestive heart failure): Code(s): I50.9 - Heart failure, unspecified Status: Acute Assessment and Plan: - Chest XR: CHF superimposed on pneumonia - Continue lasix 40 mg BID - Monitor vital signs, I&Os, BUN/creatinine, daily weights, neuro status and patient is a fall risk - Monitor serum electrolytes, Keep serum Potassium>4 and serum Magnesium>2 and CBC - Monitor volume status (5) COPD (chronic obstructive pulmonary disease): Code(s): J44.9 - Chronic obstructive pulmonary disease, unspecified Status: Acute Assessment and Plan: Chronic, per patient she previously required 2L NC at all times but the oxygen became too expensive and she stopped using it She has since been following pulmonology Dr. Power at [facility], last seen on 07/10 and told she does not need o2 any more Does not appear in acute exacerbation (6) Hypertension: Code(s): I10 - Essential (primary) hypertension Status: Acute Assessment and Plan: Chronic Continue metoprolol 100 mg daily and lasix 40 mg BID Holding imdur 60 mg daily and enalapril 20 mg q12h as patient has had soft blood pressures, resume as approrpriate Blood pressures reviewed and remain stable, continue to monitor (7) CAD (coronary artery disease): Code(s): I25.10 - Atherosclerotic heart disease of [place] coronary artery without angina pectoris Status: Acute Assessment and Plan: s/p stent placement Continue plavix 75 mg daily Time Spent With Patient Time with patient: 25 - 35 minutes Subjective Date/time seen: 07/17/25 08:02 Interval history: 85 year old female with past medical history AFib on Eliquis status post permanent pacemaker placement, CHF, COPD, CAD s/p stent placement, hypertension, and dyslipidemia who presented to the hospital with complaints of shortness of breath. Patient is pleasant sitting up comfortably in bed. She continues to endorse shortness of breath and a productive cough. She was able to be weaned to room air during assessment with stable saturations. She states that the nausea/vomiting has subsided and that she is now having soft formed stools. She has no other complaints denying chest pain, palpitations, dizziness and lightheadedness. Review of Systems Review of Systems: All systems reviewed & are unremarkable except as noted in HPI and below (Subjective) Exam Narrative: AF HR 72 RR 20 SpO2 95 BP 116/75 General: female in no acute respiratory distress who is nontoxic appearing, sitting up in bed. HEENT: Normocephalic. Atraumatic. Extraocular movement intact. Sclera clear and anicteric. No facial asymmetry. Chest: Lungs are coarse to the bases to auscultation bilaterally. No wheezes. Speaking full sentences. CV: Heart was regular rate and rhythm. Abd: Abdomen was soft. Nontender. Nondistended. Positive bowel sounds. Ext: No clubbing, cyanosis, or edema. DP pulses bilaterally. Neuro: Patient is alert and oriented x3. Speech is clear. Objective Data Vital Signs Vital Signs: Vital Signs - 24 hr 07/16/25 18:28 07/16/25 18:29 07/16/25 18:30 Temperature 99.5 F Pulse Rate 87 78 85 Respiratory Rate 21 H 35 H 23 H Blood Pressure 156/83 H Pulse Oximetry 90 91 Oxygen Delivery Room Air Oxygen Flow Rate 07/16/25 18:31 07/16/25 18:38 07/16/25 18:38 Temperature Pulse Rate 74 70 Respiratory Rate 33 H Blood Pressure 156/83 H Pulse Oximetry 93 93 Oxygen Delivery Nasal Cannula Oxygen Flow Rate 2 07/16/25 18:42 07/16/25 18:45 07/16/25 18:46 Temperature Pulse Rate 75 77 72 Respiratory Rate 24 H 20 24 H Blood Pressure 156/83 H 113/83 Pulse Oximetry 92 91 92 Oxygen Delivery Oxygen Flow Rate 07/16/25 18:47 07/16/25 19:03 07/16/25 21:11 Temperature Pulse Rate 73 82 73 Respiratory Rate 30 H 15 27 H Blood Pressure Pulse Oximetry 92 92 Oxygen Delivery Oxygen Flow Rate 07/16/25 21:15 07/16/25 21:30 07/16/25 21:54 Temperature Pulse Rate 70 73 Respiratory Rate 24 H 31 H Blood Pressure 116/74 114/74 Pulse Oximetry 95 93 93 Oxygen Delivery Nasal Cannula Oxygen Flow Rate 2 07/16/25 22:00 07/16/25 22:45 07/16/25 23:00 Temperature Pulse Rate 70 70 71 Respiratory Rate 22 H 31 H 29 H Blood Pressure 118/73 115/78 Pulse Oximetry 92 Oxygen Delivery Oxygen Flow Rate 07/16/25 23:15 07/16/25 23:30 07/16/25 23:45 Temperature Pulse Rate 70 81 70 Respiratory Rate 23 H 21 H 20 Blood Pressure Pulse Oximetry 94 Oxygen Delivery Oxygen Flow Rate 07/17/25 00:00 07/17/25 00:15 07/17/25 00:44 Temperature Pulse Rate 70 70 80 Respiratory Rate 19 22 H 19 Blood Pressure Pulse Oximetry 95 95 95 Oxygen Delivery Oxygen Flow Rate 07/17/25 00:45 07/17/25 05:36 07/17/25 06:14 Temperature Pulse Rate 74 85 Respiratory Rate 25 H 16 Blood Pressure 133/74 Pulse Oximetry 95 97 98 Oxygen Delivery Room Air Oxygen Flow Rate Intake/Output Intake/Output: Intake & Output 07/14/25 07/15/25 07/16/25 07/17/25 23:59 23:59 23:59 23:59 Intake Total 1050 360 Balance 1050 360 Meds/Results Medications: Active Medications Generic Name Dose Route Start Last Admin Trade Name Freq PRN Reason Stop Dose Admin Albuterol/Ipratropium 3 ml 07/17/25 02:02 Ipratropium 0.5 Mg/Albuterol Sulfate 2.5 Mg (Base) Ampul.Neb 3 Ml INHALATION Q6HRT PRN Shortness Of Breath Or Wheezing Guaifenesin 600 mg 07/17/25 09:00 Guaifenesin 12 Hr 600 Mg Tabcr PO Q12HR ZEESHAN Ceftriaxone Sodium 1 gm/ 50 mls @ 100 mls/hr 07/17/25 21:00 Sodium Chloride IVPB Q24H ZEESHAN Doxycycline Hyclate 100 mg/ 100 mls @ 100 mls/hr 07/17/25 11:00 Sodium Chloride IVPB 07/21/25 11:59 Q12H [facility] Radiology Results: ITS Impressions Chest X-Ray 07/16/25 19:15 Impression: CHF. Superimposed probable pneumonia Labs Labs: Laboratory Results - last 24 hr 07/16/25 07/16/25 07/16/25 18:37 20:36 21:49 WBC 20.3 H RBC 4.67 Hgb 11.7 L Hct 37.5 MCV 80.3 MCH 25.1 L MCHC 31.2 L RDW 17.6 H Plt Count 331 MPV 9.0 Immature Gran % (Auto) 0.4 Neut % (Auto) 85.0 H Lymph % (Auto) 7.6 L [place] % (Auto) 6.7 Eos % (Auto) 0.0 Baso % (Auto) 0.3 Lymph # (Auto) 1.54 [place] # (Auto) 1.4 H Eos # (Auto) 0.0 Baso # (Auto) 0.1 Abs Immat Gran (auto) 0.09 H Absolute Neuts (auto) 17.3 H Absolute Nucleated RBC 0.000 Band Neutrophils % Not Reportable Nucleated RBC % 0.0 Platelet Estimate Adequate Poikilocytosis Anisocytosis Ovalocytes Occasional Witter Cells Schistocytes None seen PT 23.7 H INR 2.2 APTT 74.5 H Sodium 136 L Potassium 3.5 Chloride 103 Carbon Dioxide 22 Anion Gap 11 BUN 11 Creatinine 0.75 Estim Creat Clear Calc 54 Estimated GFR > 60 Glucose 135 H Lactic Acid 1.7 Calcium 9.1 Magnesium Total Bilirubin 3.3 H AST 20 ALT 16 Alkaline Phosphatase 62 Troponin I 0.027 C-Reactive Protein 7.2 H Total Protein 8.0 Albumin 4.3 Lipase 51 Urine Color Urine Appearance Urine pH Ur Specific [place] Urine Protein Urine Glucose (UA) Urine Ketones Ur Blood (Man) Urine Nitrate Urine Bilirubin Urine Urobilinogen Add Ur Microanalysis Leukocyte Esterase Rfl Urine RBC Urine WBC Ur Squamous Epith Cells Urine Bacteria Urine Casts Influenza A (RT-PCR) Negative Influenza B (RT-PCR) Negative RSV (RT-PCR) Negative SARS-CoV-2 RNA (RT-PCR) Negative Group A Strep (PCR) Not detected 07/16/25 07/17/25 07/17/25 22:38 05:22 06:10 WBC 15.3 H RBC 4.48 Hgb 11.0 L Hct 36.6 L MCV 81.7 MCH 24.6 L MCHC 30.1 L RDW 17.8 H Plt Count 297 MPV 9.2 Immature Gran % (Auto) 0.5 Neut % (Auto) 91.9 H Lymph % (Auto) 5.8 L [place] % (Auto) 1.6 L Eos % (Auto) 0.0 Baso % (Auto) 0.2 Lymph # (Auto) 0.88 L [place] # (Auto) 0.3 Eos # (Auto) 0.0 Baso # (Auto) 0.0 Abs Immat Gran (auto) 0.08 H Absolute Neuts (auto) 14.0 H Absolute Nucleated RBC 0.000 Band Neutrophils % Not Reportable Nucleated RBC % 0.0 Platelet Estimate Adequate Poikilocytosis 1+ Anisocytosis 1+ Ovalocytes 1+ Witter Cells 1+ Schistocytes None seen PT INR APTT Sodium 135 L Potassium 3.2 L Chloride 101 Carbon Dioxide 22 Anion Gap 12 BUN 15 Creatinine 0.70 Estim Creat Clear Calc 57 Estimated GFR > 60 Glucose 143 H Lactic Acid Calcium 9.3 Magnesium 2.0 Total Bilirubin AST ALT Alkaline Phosphatase Troponin I C-Reactive Protein Total Protein Albumin Lipase Urine Color Yellow Urine Appearance Clear Urine pH 5.5 Ur Specific [place] 1.023 Urine Protein Trace Urine Glucose (UA) 3+ H Urine Ketones Negative Ur Blood (Man) Trace Urine Nitrate Negative Urine Bilirubin Negative Urine Urobilinogen 2.0 H Add Ur Microanalysis Reviewed Leukocyte Esterase Rfl Negative Urine RBC 6-10 H Urine WBC 0-5 Ur Squamous Epith Cells Occasional Urine Bacteria Rare Urine Casts 0-2 Influenza A (RT-PCR) Influenza B (RT-PCR) RSV (RT-PCR) SARS-CoV-2 RNA (RT-PCR) Group A Strep (PCR) Quality VTE Prophylaxis VTE prophylaxis: pharmacologic ordered (eliquis)
--- NOTE | 2025-07-17 08:51 | PC.NURSE ---
pharmacy called for mucinex.
--- NOTE | 2025-07-17 09:25 | PC.NURSE ---
Pharmacy called again for missing mucinex. Leticia states will send it via tube system.
[2025-07-17] MEDS: POTASSIUM CHLORIDE 20 MEQ ER TABLET 40 MEQ PO (09:29)
[2025-07-17] MEDS: guaiFENesin 12 HR 600 MG TABCR PO ×2 (09:29→20:24)
--- NOTE | 2025-07-17 09:33 | WPCEDHO ---
ED Hand Off Checklist All vitals saved: yes IV Site documented: yes All med administrations documented: yes Triage Note Triage Note Pt to ed via EMS co SOB, cough, 07/16/25 18:29 congestion, nausea and vomiting since yesterday. Pt co chest pain with breathing. Pt is from [facility], Pt said family member was diagnose with strep throat and she did go to urgent care today and they did not like her breathing. Pt did receive 1x neb breading treatment at urgent care and 125mg of Solumedrol from EMS. Allergies Honey Bee Allergy (Intermediate, Uncoded 07/25/23 17:22) HIVES Current Diagnoses Pneumonia, unspecified organism (07/16/25) Active Medications including assessments/comments Guaifenesin (Guaifenesin 12 Hr 600 Mg Tabcr) 600 mg PO Q12HR ZEESHAN Last Admin: 07/17/25 09:29 Dose: 600 mg Documented By: MLI Administered/Completed Medications Discontinued Medications Ceftriaxone Sodium 1 gm/ (Sodium Chloride) 50 mls @ 100 mls/hr IVPB ONCE STA Stop: 07/16/25 20:12 Last Infusion: 07/16/25 22:01 Dose: Infused Documented By: Admin: 07/16/25 21:31 Dose: 100 mls/hr Documented By: ACS Doxycycline Hyclate 100 mg/ (Sodium Chloride) 100 mls @ 100 mls/hr IVPB ONCE STA Stop: 07/16/25 20:42 Last Infusion: 07/17/25 00:27 Dose: Infused Documented By: Admin: 07/16/25 23:25 Dose: 100 mls/hr Documented By: ACS Lactated Ringer's (Lr - Lactated Ringers Iv) 1,000 mls @ 999 mls/hr IV CONT .Q1H1M STA Stop: 07/16/25 20:44 Last Infusion: 07/16/25 22:41 Dose: Infused Documented By: Admin: 07/16/25 21:31 Dose: 999 mls/hr Documented By: ACS Potassium Chloride (Potassium Chloride 20 Meq Er Tablet) 40 meq PO ONCE ONE Stop: 07/17/25 08:10 Last Admin: 07/17/25 09:29 Dose: 40 meq Documented By: MLI Notes 07/17/25 09:25 Nurse Note by Dena Gutiérrez Pharmacy called again for missing mucinex. Leticia states will send it via tube system. Initialized on 07/17/25 09:25 - END OF NOTE 07/17/25 08:51 Nurse Note by Dena Gutiérrez pharmacy called for mucinex. Initialized on 07/17/25 08:51 - END OF NOTE 07/17/25 06:42 Nurse Note by Vy Scott Pt morning weight was 92.7 kg. Pt was weighed in hospital bed while in pt gown. Pt states when she was first weighed she was wearing her heavy coat. Initialized on 07/17/25 06:42 - END OF NOTE 07/16/25 22:07 Nurse Note by Rocio Carlos This RN spoke with pt and stated it would be better to do a bedside commode then to walk to the bathroom due to being short of breath. pt agreed to use bedside commode. Initialized on 07/16/25 22:07 - END OF NOTE 07/16/25 21:51 Nurse Note by Rocio Carlos pt refusing straight catheter and bedside commode. Initialized on 07/16/25 21:51 - END OF NOTE Interventions/Assessments Cardiac Monitoring Start: 07/16/25 18:16 Freq: Status: Active Protocol: Document 07/16/25 18:38 AZG (Rec: 07/16/25 18:40 AZG [id number]) Tube Cutter Operator Assessment Tube Cutter Operator Yes Applied Pulse Rate (60-100) 70 EKG Rythm Sinus Rhythm IV / Saline Lock, Insert Start: 07/16/25 18:16 Freq: Status: Active Protocol: Document 07/16/25 18:38 AZG (Rec: 07/16/25 18:40 AZG [id number]) IV Assessment Peripheral Access Left Antecubital IV Catheter Access Initiated Before Arrival IV Insertion Date 07/16/25 IV Insertion Time 18:38 Catheter Gauge 20 IV Site Assessment WNL IV Care and WNL Maintenance IV / Saline Lock, Insert Start: 07/16/25 18:27 Freq: STAT Status: Complete Protocol: Document 07/16/25 21:15 ACS (Rec: 07/16/25 21:16 ACS [id number]) IV Assessment Peripheral Access Right Forearm IV Catheter Access Initiated IV Insertion Date 07/16/25 IV Insertion Time 21:16 Catheter Gauge 20 IV Insertion 1 Attempts IV Site Assessment WNL IV Care and WNL Maintenance PA: Cardiovascular Assessment Start: 07/16/25 18:16 Freq: Status: Active Protocol: Document 07/17/25 06:14 KRZ (Rec: 07/17/25 06:15 KRZ [id number]) Cardiovascular Assessment Cardiovascular Dyspnea Symptoms Skin Description Normal Color Heart Sounds Normal Chest Pain Assessment Chest Pain Intensity 0 PA: Respiratory Assessment Start: 07/16/25 18:16 Freq: Status: Active Protocol: Document 07/17/25 06:14 KRZ (Rec: 07/17/25 06:15 KRZ [id number]) Respiratory Assessment Respiratory Focused Assessment Parameters Symptoms Congestion,Cough Effort Normal Depth Normal Chest Expansion Symmetrical Adult Capillary Normal/Less than 2 Seconds Refill Lower Lobe(s) Phase Inspiratory & Expiratory Lung Sounds Crackles Cough Description Productive Cough Frequency Intermittent Sputum Amount Moderate Sputum Color Green Oxygen Delivery Oxygen Delivery Room Air Pulse Oximetry (90- 98 100) Last Vital Signs Temperature 99.5 F 07/16/25 18:29 Pulse Rate 78 07/17/25 09:32 Respiratory Rate 20 07/17/25 09:32 Pulse Oximetry 98 07/17/25 09:32 Blood Pressure 164/87 H 07/17/25 09:32 Blood Pressure Mean 112 07/17/25 09:32 Blood Pressure Position Sitting 07/16/25 18:42 Oxygen Delivery Room Air 07/17/25 06:14 Oxygen Flow Rate 2 07/16/25 21:54 Weight 94.5 kg 07/16/25 18:29 Last Result - Abnormals Only WBC 15.3 K/mm3 (4.5-10.0) H 07/17/25 05:22 Hgb 11.0 g/dL (12.0-15.0) L 07/17/25 05:22 Hct 36.6 % (37.0-47.0) L 07/17/25 05:22 MCH 24.6 pg (26-34) L 07/17/25 05:22 MCHC 30.1 g/dl (32-36) L 07/17/25 05:22 RDW 17.8 % (11.5-14.5) H 07/17/25 05:22 Neut % (Auto) 91.9 % (45.5-73.1) H 07/17/25 05:22 Lymph % (Auto) 5.8 % (18.3-44.2) L 07/17/25 05:22 [place] % (Auto) 1.6 % (2.6-8.5) L 07/17/25 05:22 Lymph # (Auto) 0.88 K/mm3 (0.9-3.2) L 07/17/25 05:22 [place] # (Auto) 1.4 K/mm3 (0.1-0.6) H 07/16/25 18:37 Abs Immat Gran (auto) 0.08 K/mm3 (0.00-0.031) H 07/17/25 05:22 Absolute Neuts (auto) 14.0 K/mm3 (1.3-6.7) H 07/17/25 05:22 PT 23.7 Seconds (11.1-14.7) H 07/16/25 18:37 APTT 74.5 Seconds (22.3-36.8) H 07/16/25 18:37 Sodium 135 mmol/L (137-145) L 07/17/25 06:10 Potassium 3.2 mmol/L (3.4-5.0) L 07/17/25 06:10 Glucose 143 mg/dL (65-110) H 07/17/25 06:10 Total Bilirubin 3.3 mg/dL (0.2-1.3) H 07/16/25 18:37 C-Reactive Protein 7.2 mg/dL (<1.0) H 07/16/25 18:37 Urine Glucose (UA) 3+ mg/dL (Negative) H 07/16/25 22:38 Urine Urobilinogen 2.0 mg/dL (<2.0) H 07/16/25 22:38 Urine RBC 6-10 /hpf (0-2) H 07/16/25 22:38 Most Recent Suicide Severity Rating Suicide Severity Rating NO RISK INDICATED 07/16/25 18:29
--- NOTE | 2025-07-17 10:16 | ADMGEN ---
This patient, Bonilla Marquez, was admitted to 2 Medical Room 261-01. Patient/family oriented to hospital policies and general routines including ID bracelet, bed and alarms, visiting hours, pain management, procedures, bathroom and other care routines, personal items, smoking policy, room service/diet, and visiting hours. Information on how to activate the Rapid Response Team has been discussed. Patient/Family are encouraged to report perceived risks to care and to ask questions if they do not understand what they are told or what they should do.
[2025-07-17] MEDS: DOXYCYCLINE IV 100 MG in SODIUM CHLORIDE 0.9% IV 100 ML IVPB ×2 (10:37→22:22)
[2025-07-17 14:19] LABS: Toxigenic C. Diff NEGATIVE (NEGATIVE)
[2025-07-17] MEDS: ALBUTEROL SULFATE (*SP) AEROSOL 1 PUFF 2 PUFF INHALATION (15:03)
[2025-07-17] MEDS: FLUTICASONE/UMECLIDIN/VILANTER 200-62.5-25 MCG ELLIPTA 1 PUFF INHALATION (17:04)
[2025-07-17] MEDS: POTASSIUM CHLORIDE 10 MEQ ER TABLET PO (17:24)
[2025-07-17] MEDS: FUROSEMIDE 40 MG TABLET PO (17:24)
[2025-07-17] MEDS: ATORVASTATIN 40 MG TABLET 80 MG PO (17:24)
[2025-07-17] MEDS: METOPROLOL SUCCINATE EXT REL 100 MG TABCR PO (20:24)
[2025-07-17] MEDS: APIXABAN 5 MG TABLET PO (20:24)
[2025-07-17] MEDS: cefTRIAXone 1 GM in SODIUM CHLORIDE 0.9% IV 50 ML 100 ML IVPB (20:25)
[2025-07-17] MEDS: FLUTICASONE PROPIONATE 0.05% NA SPR 16 GM BTL (*BKC) 1 SPRAY NASAL (22:21)
[2025-07-17] MEDS: IPRATROPIUM 0.5 MG/ALBUTEROL SULFATE 2.5 MG (BASE) AMPUL.NEB 3 ML INHALATION (22:52)
[2025-07-18] VITALS (18 sets, daily range): BP systolic 109–156; BP diastolic 68–89; PULSE 69–74; RESP 14–32; TEMP 36.3–36.8; O2SAT 93–98
[2025-07-18 04:46] LABS: Hematocrit 36.2 % (37.0-47.0); Hemoglobin 10.9 g/dL (12.0-15.0); Mean Corpuscular HGB Conc 30.1 g/dl (32-36); Mean Corpuscular Hemoglobin 24.4 pg (26-34); Mean Corpuscular Volume 81.0 fl (80-100); Platelet Count Result 337 k/mm3 (150-375); Red Blood Count 4.47 M/mm3 (4.2-5.4); White Blood Count 15.7 K/mm3 (4.5-10.0)
[2025-07-18 05:22] LABS: Alanine Aminotransferase 15 U/L (6-35); Albumin Level 3.8 g/dL (3.5-5.1); Alkaline Phosphatase 59 U/L (38-126); Anion Gap 10 mmol/L (4-12); Aspartate Amino Transferase 23 U/L (14-36); Bilirubin,Total 1.2 mg/dL (0.2-1.3); Blood Urea Nitrogen 24 mg/dL (7-17); Calcium 9.2 mg/dL (8.4-10.2); Carbon Dioxide 22 mmol/L (22-30); Chloride 104 mmol/L (98-107); Estimated CRCL calculation 55 ml/min; Estimated Glomerular Filt Rate > 60; Glucose 113 mg/dL (65-110); Potassium 3.8 mmol/L (3.4-5.0); Sodium 136 mmol/L (137-145); Total Protein 7.2 g/dL (6.3-8.2)
[2025-07-18] MEDS: FLUTICASONE/UMECLIDIN/VILANTER 200-62.5-25 MCG ELLIPTA 1 PUFF INHALATION (08:26)
--- NOTE | 2025-07-18 08:44 | P.PNIM_ITS ---
Progress Note: A&P Assessment and Plan (1) Sepsis: Code(s): A41.9 - Sepsis, unspecified organism Status: Acute Assessment and Plan: Meets SIRS criteria: tachypnea and leukocytosis - lactic acid: 1.7 - Received sepsis bolus Will not give any further due to history of CHF. Patient has coarse lungs sounds on exam and does not appear dry. Will resume lasix. Monitor. - suspected source: PNA - blood cultures drawn on 07/16: pending - UA: nonconcerning for infection - CXR: CHF superimposed on probable pneumonia - See plan below Vitals stable. Continues to have leukocytosis. See plan below. (2) Community acquired pneumonia: Code(s): J18.9 - Pneumonia, unspecified organism Status: Acute Assessment and Plan: CXR: CHF superimposed on probable pneumonia - started on CAP tx: Rocephin and doxycycline on 07/17 - Viral PCR: negative for Flu/COVID/RSV - Respiratory panel - Sputum sample pending - Legionella, mycoplasma and pneumococcal pending - started on o2 supplementation on admission however no noted hypoxia on chart review, has since been weaned back to room air with stable sats - Duonebs with mucomyst q6h - IS and PEP therapy - Mucinex 1200 mg BID - Monitor vital signs, I&Os, neuro status and patient is a fall risk - Follow WBC, serum electrolytes, temperature curves and cultures Continues to endorse SOB with associated productive cough. Endorsing increased congestion. Lungs remain coarse on auscultation. Continue antibiotics and therpeutic treatment as above. (3) Atrial fibrillation: Code(s): I48.91 - Unspecified atrial fibrillation Status: Acute Assessment and Plan: S/p permanent pacemaker - EKG: paced HR 73 - Current home medication: metoprolol 100 mg daily and eliquis 5 mg q12 (4) CHF (congestive heart failure): Code(s): I50.9 - Heart failure, unspecified Status: Acute Assessment and Plan: - Chest XR: CHF superimposed on pneumonia - Continue lasix 40 mg BID - Monitor vital signs, I&Os, BUN/creatinine, daily weights, neuro status and patient is a fall risk - Monitor serum electrolytes, Keep serum Potassium>4 and serum Magnesium>2 and CBC - Monitor volume status (5) COPD (chronic obstructive pulmonary disease): Code(s): J44.9 - Chronic obstructive pulmonary disease, unspecified Status: Acute Assessment and Plan: Chronic, per patient she previously required 2L NC at all times but the oxygen became too expensive and she stopped using it She has since been following pulmonology Dr. Power at [facility], last seen on 07/10 and told she does not need o2 any more Does not appear in acute exacerbation (6) Hypertension: Code(s): I10 - Essential (primary) hypertension Status: Acute Assessment and Plan: Chronic Continue metoprolol 100 mg daily, enalapril 20 mg q12h, lasix 40 mg BID, imdur 60 mg daily Blood pressures reviewed and remain stable, continue to monitor (7) CAD (coronary artery disease): Code(s): I25.10 - Atherosclerotic heart disease of [place] coronary artery without angina pectoris Status: Acute Assessment and Plan: s/p stent placement Continue plavix 75 mg daily Time Spent With Patient Time with patient: 25 - 35 minutes Subjective Date/time seen: 07/18/25 08:44 Interval history: 85 year old female with past medical history AFib on Eliquis status post permanent pacemaker placement, CHF, COPD, CAD s/p stent placement, hypertension, and dyslipidemia who presented to the hospital with complaints of shortness of breath. Patient is pleasant sitting up in her chair. She continues to endorse shortness of breath but states slightly improved. Continues to have increased congestion. She has no other complaints denying chest pain, palpitations, nausea/vomiting, abdominal pain, and dizziness/lightheadedness. Review of Systems Review of Systems: All systems reviewed & are unremarkable except as noted in HPI and below (Subjective) Exam Narrative: AF HR 70 RR 14 SPO2 96 BP 145/68 General: female in no acute respiratory distress who is nontoxic appearing, sitting up in chair HEENT: Normocephalic. Atraumatic. Extraocular movement intact. Sclera clear and anicteric. No facial asymmetry. Chest: Lungs are coarse to the bases to auscultation bilaterally. No wheezes. Speaking full sentences. CV: Heart was regular rate and rhythm. Abd: Abdomen was soft. Nontender. Nondistended. Positive bowel sounds. Ext: No clubbing, cyanosis, or edema. DP pulses bilaterally. Neuro: Patient is alert and oriented x3. Speech is clear. Objective Data Vital Signs Vital Signs: Vital Signs - 24 hr 07/17/25 09:32 07/17/25 10:19 07/17/25 10:20 Temperature 97.1 F L Pulse Rate 78 69 Respiratory Rate 20 22 H Blood Pressure 164/87 H 106/57 L Pulse Oximetry 98 97 97 Oxygen Delivery Nasal Cannula Oxygen Flow Rate 2 07/17/25 11:32 07/17/25 12:00 07/17/25 12:00 Temperature Pulse Rate 76 72 Respiratory Rate 20 Blood Pressure 116/75 Pulse Oximetry 95 95 Oxygen Delivery Room Air Oxygen Flow Rate 07/17/25 14:55 07/17/25 15:09 07/17/25 15:52 Temperature Pulse Rate Respiratory Rate Blood Pressure Pulse Oximetry 95 Oxygen Delivery Room Air Room Air Room Air Oxygen Flow Rate 07/17/25 16:00 07/17/25 16:00 07/17/25 20:00 Temperature Pulse Rate 70 70 71 Respiratory Rate 22 H Blood Pressure 100/54 L Pulse Oximetry 93 Oxygen Delivery Oxygen Flow Rate 07/17/25 20:00 07/17/25 20:24 07/17/25 20:37 Temperature 97.7 F Pulse Rate 69 71 Respiratory Rate 16 Blood Pressure 136/69 Pulse Oximetry 95 Oxygen Delivery Room Air Oxygen Flow Rate 07/17/25 22:53 07/17/25 23:05 07/17/25 23:24 Temperature 97.3 F L Pulse Rate 70 70 Respiratory Rate 20 16 Blood Pressure 141/78 H Pulse Oximetry 96 Oxygen Delivery CPAP Oxygen Flow Rate 07/18/25 00:00 07/18/25 04:00 07/18/25 04:00 Temperature 97.7 F Pulse Rate 70 70 69 Respiratory Rate 16 Blood Pressure 156/89 H Pulse Oximetry 95 Oxygen Delivery Oxygen Flow Rate 07/18/25 08:26 07/18/25 08:26 Temperature Pulse Rate 70 70 Respiratory Rate 20 20 Blood Pressure Pulse Oximetry 95 Oxygen Delivery Room Air Oxygen Flow Rate Intake/Output Intake/Output: Intake & Output 07/15/25 07/16/25 07/17/25 07/18/25 23:59 23:59 23:59 23:59 Intake Total 1050 1290 300 Balance 1050 1290 300 Meds/Results Medications: Active Medications Generic Name Dose Route Start Last Admin Trade Name Freq PRN Reason Stop Dose Admin Albuterol 2 puff 07/17/25 12:55 07/17/25 15:03 Albuterol Sulfate (*Sp) Aerosol 1 Puff INHALATION 2 puff Q4H PRN Administration Shortness Of Breath Or Wheezing Albuterol/Ipratropium 3 ml 07/17/25 02:02 07/17/25 22:52 Ipratropium 0.5 Mg/Albuterol Sulfate 2.5 Mg (Base) Ampul.Neb 3 Ml INHALATION 3 ml Q6HRT PRN Administration Shortness Of Breath Or Wheezing Apixaban 5 mg 07/17/25 21:00 07/17/25 20:24 Apixaban 5 Mg Tablet PO 5 mg Q12HR ZEESHAN Administration Atorvastatin Calcium 80 mg 07/17/25 18:00 07/17/25 17:24 Atorvastatin 40 Mg Tablet PO 80 mg QPM ZEESHAN Administration Clopidogrel Bisulfate 75 mg 07/18/25 09:00 Clopidogrel Bisulfate 75 Mg Tablet PO DAILY ZEESHAN Fluticasone Propionate 1 spray 07/17/25 22:11 07/17/25 22:21 Fluticasone Propionate 0.05% Na Spr 16 Gm Btl (*Bkc) NASAL 1 spray Q12HR ZEESHAN Administration Fluticasone/Umeclidinium/Vilanterol 1 puff 07/17/25 16:00 07/18/25 08:26 Fluticasone/Umeclidin/Vilanter 200-62.5-25 Mcg Ellipta INHALATION 1 puff DAILY ZEESHAN Administration Furosemide 40 mg 07/17/25 17:00 07/17/25 17:24 Furosemide 40 Mg Tablet PO 40 mg BID ZEESHAN Administration Guaifenesin 600 mg 07/17/25 09:00 07/17/25 20:24 Guaifenesin 12 Hr 600 Mg Tabcr PO 600 mg Q12HR ZEESHAN Administration Ceftriaxone Sodium 1 gm/ 50 mls @ 100 mls/hr 07/17/25 21:00 07/17/25 20:55 Sodium Chloride IVPB Infused Q24H ZEESHAN Infusion Doxycycline Hyclate 100 mg/ 100 mls @ 100 mls/hr 07/17/25 11:00 07/17/25 23:31 Sodium Chloride IVPB 07/21/25 11:59 Infused Q12H ZEESHAN Infusion Metoprolol Succinate 100 mg 07/17/25 21:00 07/17/25 20:24 Metoprolol Succinate Ext Rel 100 Mg Tabcr PO 100 mg Q12HR ZEESHAN Administration Potassium Chloride 10 meq 07/17/25 17:00 07/17/25 17:24 Potassium Chloride 10 Meq Er Tablet PO 10 meq BID ZEESHAN Administration Radiology Results: ITS Impressions Chest X-Ray 07/16/25 19:15 Impression: CHF. Superimposed probable pneumonia Labs Labs: Laboratory Results - last 24 hr 07/17/25 07/17/25 07/18/25 04:57 12:47 04:13 WBC 15.7 H RBC 4.47 Hgb 10.9 L Hct 36.2 L MCV 81.0 MCH 24.4 L MCHC 30.1 L RDW 17.7 H Plt Count 337 MPV 9.5 Sodium 136 L Potassium 3.8 Chloride 104 Carbon Dioxide 22 Anion Gap 10 BUN 24 H Creatinine 0.73 Estim Creat Clear Calc 55 Estimated GFR > 60 Glucose 113 H Calcium 9.2 Total Bilirubin 1.2 AST 23 ALT 15 Alkaline Phosphatase 59 Total Protein 7.2 Albumin 3.8 Nasal RSV Type A (PCR) Cancelled Nasal RSV Type B (PCR) Cancelled Chlamy pneumoniae PCR Cancelled Adenovirus DNA Cancelled Human Bocavirus (YAKELIN) Cancelled C. difficile (PCR) Negative Coronavirus Type OC43 Cancelled Coronavirus Type HKU1 Cancelled Coronavirus Type 229E Cancelled Coronavirus Type NL63 Cancelled Human Metapneumovir PCR Cancelled Influenza A (PCR) Cancelled Influenza A (H1) RNA Cancelled Influenza A (H3) PCR Cancelled M. pneumoniae DNA Cancelled Parainfluenza PCR Cancelled Parainfluenza 2 (PCR) Cancelled Parainfluenza 3 RNA (PCR) Cancelled Parainfluenza 4 (PCR) Cancelled Rhino/Enterovirus (YAKELIN) Cancelled SARS-CoV-2 RNA (RT-PCR) Cancelled Influenza Type B (PCR) Cancelled Misc Test Comment Cancelled Quality VTE Prophylaxis VTE prophylaxis: pharmacologic ordered (eliquis)
[2025-07-18] MEDS: CLOPIDOGREL BISULFATE 75 MG TABLET PO (09:34)
[2025-07-18] MEDS: FUROSEMIDE 40 MG TABLET PO ×2 (09:34→17:11)
[2025-07-18] MEDS: FLUTICASONE PROPIONATE 0.05% NA SPR 16 GM BTL (*BKC) 1 SPRAY NASAL ×2 (09:34→21:24)
[2025-07-18] MEDS: POTASSIUM CHLORIDE 10 MEQ ER TABLET PO ×2 (09:34→17:11)
[2025-07-18] MEDS: guaiFENesin 12 HR 600 MG TABCR PO (09:34)
[2025-07-18] MEDS: APIXABAN 5 MG TABLET PO ×2 (09:34→21:24)
[2025-07-18] MEDS: METOPROLOL SUCCINATE EXT REL 100 MG TABCR PO ×2 (09:34→21:24)
[2025-07-18] MEDS: ENALAPRIL MALEATE 10 MG TABLET 20 MG PO ×2 (09:34→21:24)
[2025-07-18] MEDS: DOXYCYCLINE IV 100 MG in SODIUM CHLORIDE 0.9% IV 100 ML IVPB ×2 (09:55→22:10)
--- NOTE | 2025-07-18 11:55 | PC.NURSE ---
On 07/18/25, the student, [Freya Patel], provided care and completed [facility] documentation on this patient. I have reviewed the student's documentation and agree with the findings.
--- NOTE | 2025-07-18 13:18 | PCRCNOTE ---
RN called for PRN treatment on patient. Upon arrival patient was asleep did not wake patient for treatment.
[2025-07-18] MEDS: ACETYLCYSTEINE 20% INHAL SOLN 800 MG/4 ML VIAL 200 MG INHALATION (14:33)
[2025-07-18] MEDS: IPRATROPIUM 0.5 MG/ALBUTEROL SULFATE 2.5 MG (BASE) AMPUL.NEB 3 ML INHALATION ×2 (14:33→20:38)
[2025-07-18] MEDS: ATORVASTATIN 40 MG TABLET 80 MG PO (17:11)
[2025-07-18] MEDS: guaiFENesin 12 HR 600 MG TABCR 1200 MG PO (21:23)
[2025-07-18] MEDS: cefTRIAXone 1 GM in SODIUM CHLORIDE 0.9% IV 50 ML 100 ML IVPB (21:25)
[2025-07-18] MEDS: SUCRALFATE 1 GM TABLET PO (23:24)
--- NOTE | 2025-07-18 23:29 | PCRCNOTE ---
Upon learning of the patient having a pacemaker, they were informed of the serious risk for interference with the pacemaker, from the magnets on her CPAP mask. RT provided a hospital replacement of the same style; a nasal mask, size medium with hooks and instructed on the use, handling and removal of the newer mask. RT will pass onto the oncoming shift the need for contacting either the provider or the DME that provides the replacements for home use.
[2025-07-19] VITALS (23 sets, daily range): BP systolic 128–164; BP diastolic 58–79; PULSE 69–76; RESP 16–20; TEMP 36.3–36.8; O2SAT 93–95
[2025-07-19] MEDS: IPRATROPIUM 0.5 MG/ALBUTEROL SULFATE 2.5 MG (BASE) AMPUL.NEB 3 ML INHALATION ×4 (01:56→19:47)
[2025-07-19] MEDS: SUCRALFATE 1 GM TABLET PO ×3 (05:21→23:00)
[2025-07-19 05:36] LABS: Hematocrit 37.5 % (37.0-47.0); Hemoglobin 11.2 g/dL (12.0-15.0); Mean Corpuscular HGB Conc 29.9 g/dl (32-36); Mean Corpuscular Hemoglobin 24.6 pg (26-34); Mean Corpuscular Volume 82.4 fl (80-100); Platelet Count Result 338 k/mm3 (150-375); Red Blood Count 4.55 M/mm3 (4.2-5.4); White Blood Count 11.3 K/mm3 (4.5-10.0)
[2025-07-19 05:52] LABS: Alanine Aminotransferase 21 U/L (6-35); Albumin Level 3.9 g/dL (3.5-5.1); Alkaline Phosphatase 60 U/L (38-126); Anion Gap 11 mmol/L (4-12); Aspartate Amino Transferase 28 U/L (14-36); Bilirubin,Total 1.1 mg/dL (0.2-1.3); Blood Urea Nitrogen 17 mg/dL (7-17); Calcium 8.8 mg/dL (8.4-10.2); Carbon Dioxide 23 mmol/L (22-30); Chloride 103 mmol/L (98-107); Estimated CRCL calculation 59 ml/min; Estimated Glomerular Filt Rate > 60; Glucose 98 mg/dL (65-110); Potassium 3.7 mmol/L (3.4-5.0); Sodium 137 mmol/L (137-145); Total Protein 7.5 g/dL (6.3-8.2)
[2025-07-19] MEDS: FLUTICASONE/UMECLIDIN/VILANTER 200-62.5-25 MCG ELLIPTA 1 PUFF INHALATION (07:36)
--- NOTE | 2025-07-19 08:22 | P.PNIM_ITS ---
Progress Note: A&P Assessment and Plan (1) Sepsis: Code(s): A41.9 - Sepsis, unspecified organism Status: Acute Assessment and Plan: Meets SIRS criteria: tachypnea and leukocytosis - lactic acid: 1.7 - Received sepsis bolus Will not give any further due to history of CHF. Patient has coarse lungs sounds on exam and does not appear dry. Will resume lasix. Monitor. - suspected source: PNA - blood cultures drawn on 07/16: pending - UA: nonconcerning for infection - CXR: CHF superimposed on probable pneumonia - See plan below Vitals stable. Continues to have leukocytosis. See plan below. 07/19- improving- 11.3 today (2) Community acquired pneumonia: Code(s): J18.9 - Pneumonia, unspecified organism Status: Acute Assessment and Plan: CXR: CHF superimposed on probable pneumonia - started on CAP tx: Rocephin and doxycycline on 07/17 - Viral PCR: negative for Flu/COVID/RSV - Respiratory panel - Sputum sample pending - Legionella, mycoplasma and pneumococcal pending - started on o2 supplementation on admission however no noted hypoxia on chart review, has since been weaned back to room air with stable sats - Duonebs with mucomyst q6h - IS and PEP therapy - Mucinex 1200 mg BID - Monitor vital signs, I&Os, neuro status and patient is a fall risk - Follow WBC, serum electrolytes, temperature curves and cultures Continues to endorse SOB with associated productive cough. Endorsing increased congestion. Lungs remain coarse on auscultation. Continue antibiotics and therpeutic treatment as above. -------- 07/19 continue antibiotics, ambulation, IS (3) Atrial fibrillation: Code(s): I48.91 - Unspecified atrial fibrillation Status: Acute Assessment and Plan: S/p permanent pacemaker - EKG: paced HR 73 - Current home medication: metoprolol 100 mg daily and eliquis 5 mg q12 (4) CHF (congestive heart failure): Code(s): I50.9 - Heart failure, unspecified Status: Acute Assessment and Plan: - Chest XR: CHF superimposed on pneumonia - Continue lasix 40 mg BID - Monitor vital signs, I&Os, BUN/creatinine, daily weights, neuro status and patient is a fall risk - Monitor serum electrolytes, Keep serum Potassium>4 and serum Magnesium>2 and CBC - Monitor volume status (5) COPD (chronic obstructive pulmonary disease): Code(s): J44.9 - Chronic obstructive pulmonary disease, unspecified Status: Acute Assessment and Plan: Chronic, per patient she previously required 2L NC at all times but the oxygen became too expensive and she stopped using it She has since been following pulmonology Dr. Power at [facility], last seen on 07/10 and told she does not need o2 any more Does not appear in acute exacerbation (6) Hypertension: Code(s): I10 - Essential (primary) hypertension Status: Acute Assessment and Plan: Chronic Continue metoprolol 100 mg daily, enalapril 20 mg q12h, lasix 40 mg BID, imdur 60 mg daily Blood pressures reviewed and remain stable, continue to monitor --------- reviewed and stable (7) CAD (coronary artery disease): Code(s): I25.10 - Atherosclerotic heart disease of [place] coronary artery without angina pectoris Status: Acute Assessment and Plan: s/p stent placement Continue plavix 75 mg daily Time Spent With Patient Time with patient: 25 - 35 minutes Subjective Date/time seen: 07/19/25 08:22 Interval history: 85 year old female with past medical history AFib on Eliquis status post permanent pacemaker placement, CHF, COPD, CAD s/p stent placement, hypertension, and dyslipidemia who presented to the hospital with complaints of shortness of breath. Patient is resting in bed. She continues to endorse shortness of breath but reports slight improved. Continues to have increased congestion. She has no other complaints denying chest pain, palpitations, nausea/vomiting, abdominal pain, and dizziness/lightheadedness. Review of Systems Review of Systems: All systems reviewed & are unremarkable except as noted in HPI and below (Subjective) Exam Narrative: AF HR 70 RR 14 SPO2 96 BP 145/68 General: female in no acute respiratory distress who is nontoxic appearing, sitting up in chair HEENT: Normocephalic. Atraumatic. Extraocular movement intact. Sclera clear and anicteric. No facial asymmetry. Chest: Lungs are coarse to the bases to auscultation bilaterally. No wheezes. Speaking full sentences. CV: Heart was regular rate and rhythm. Abd: Abdomen was soft. Nontender. Nondistended. Positive bowel sounds. Ext: No clubbing, cyanosis, or edema. DP pulses bilaterally. Neuro: Patient is alert and oriented x3. Speech is clear. Const: General: comfortable and no acute distress HENMT: Mouth: Yes moist mucous membranes Eyes: Pupils: Equal, round and reactive pupils present Neck: Neck: supple Resp: Effort & Inspection: normal respiratory effort Other: Fine bibasilar crackles Cardio: Rate: regular rate Rhythm: regular rhythm GI: Inspection: non-distended Neuro: Cranial nerves: Yes Equal, round and reactive pupils present Motor exam (neuro): 5/5 motor strength present throughout Extrem: General: no edema Objective Data Vital Signs Vital Signs: Vital Signs - 24 hr 07/18/25 08:26 07/18/25 08:26 07/18/25 09:34 Temperature Pulse Rate 70 70 70 Respiratory Rate 20 20 Blood Pressure Pulse Oximetry 95 Oxygen Delivery Room Air Fraction of Inspired Oxygen 07/18/25 09:45 07/18/25 10:00 07/18/25 12:00 Temperature Pulse Rate 70 72 Respiratory Rate 20 Blood Pressure Pulse Oximetry 95 95 Oxygen Delivery Room Air Room Air Fraction of Inspired Oxygen 07/18/25 12:00 07/18/25 14:36 07/18/25 14:36 Temperature 98.3 F Pulse Rate 70 70 70 Respiratory Rate 14 20 20 Blood Pressure 145/68 H Pulse Oximetry 96 93 Oxygen Delivery Room Air Fraction of Inspired Oxygen 07/18/25 14:45 07/18/25 16:00 07/18/25 18:32 Temperature 97.3 F L Pulse Rate 70 72 73 Respiratory Rate 20 16 Blood Pressure 109/68 Pulse Oximetry 96 Oxygen Delivery Fraction of Inspired Oxygen 07/18/25 20:00 07/18/25 20:00 07/18/25 20:00 Temperature 97.4 F L Pulse Rate 74 70 Respiratory Rate 20 Blood Pressure 138/75 Pulse Oximetry 98 94 Oxygen Delivery Room Air Fraction of Inspired Oxygen 07/18/25 20:40 07/18/25 20:40 07/18/25 20:50 Temperature Pulse Rate 70 70 70 Respiratory Rate 20 20 18 Blood Pressure Pulse Oximetry 94 Oxygen Delivery Room Air Fraction of Inspired Oxygen 21 07/18/25 21:24 07/18/25 22:00 07/18/25 23:47 Temperature 97.6 F Pulse Rate 70 70 73 Respiratory Rate 20 Blood Pressure 147/81 H Pulse Oximetry 94 95 Oxygen Delivery CPAP Fraction of Inspired Oxygen 07/19/25 00:00 07/19/25 01:56 07/19/25 02:06 Temperature Pulse Rate 70 73 72 Respiratory Rate 18 18 Blood Pressure Pulse Oximetry Oxygen Delivery Fraction of Inspired Oxygen 07/19/25 02:10 07/19/25 03:58 07/19/25 04:00 Temperature 97.6 F Pulse Rate 72 73 71 Respiratory Rate 20 Blood Pressure 153/79 H Pulse Oximetry 94 94 Oxygen Delivery CPAP Fraction of Inspired Oxygen 07/19/25 07:38 07/19/25 07:44 07/19/25 07:49 Temperature Pulse Rate 73 75 Respiratory Rate 18 18 Blood Pressure Pulse Oximetry 93 Oxygen Delivery Room Air Fraction of Inspired Oxygen 21 Intake/Output Intake/Output: Intake & Output 07/16/25 07/17/25 07/18/25 07/19/25 23:59 23:59 23:59 23:59 Intake Total 1050 1290 3116 550 Balance 1050 1290 3116 550 Meds/Results Medications: Active Medications Generic Name Dose Route Start Last Admin Trade Name Freq PRN Reason Stop Dose Admin Albuterol 2 puff 07/17/25 12:55 07/17/25 15:03 Albuterol Sulfate (*Sp) Aerosol 1 Puff INHALATION 2 puff Q4H PRN Administration Shortness Of Breath Or Wheezing Albuterol/Ipratropium 3 ml 07/18/25 14:00 07/19/25 07:35 Ipratropium 0.5 Mg/Albuterol Sulfate 2.5 Mg (Base) Ampul.Neb 3 Ml INHALATION 3 ml Q6HRT ZEESHAN Administration Apixaban 5 mg 07/17/25 21:00 07/18/25 21:24 Apixaban 5 Mg Tablet PO 5 mg Q12HR ZEESHAN Administration Atorvastatin Calcium 80 mg 07/17/25 18:00 07/18/25 17:11 Atorvastatin 40 Mg Tablet PO 80 mg QPM ZEESHAN Administration Clopidogrel Bisulfate 75 mg 07/18/25 09:00 07/18/25 09:34 Clopidogrel Bisulfate 75 Mg Tablet PO 75 mg DAILY ZEESHAN Administration Enalapril Maleate 20 mg 07/18/25 09:00 07/18/25 21:24 Enalapril Maleate 10 Mg Tablet PO 20 mg Q12H ZEESHAN Administration Famotidine 20 mg 07/19/25 09:00 Famotidine 20 Mg Tablet PO Q12HR [facility] Fluticasone Propionate 1 spray 07/17/25 22:11 07/18/25 21:24 Fluticasone Propionate 0.05% Na Spr 16 Gm Btl (*Bkc) NASAL 1 spray Q12HR ZEESHAN Administration Fluticasone/Umeclidinium/Vilanterol 1 puff 07/17/25 16:00 07/19/25 07:36 Fluticasone/Umeclidin/Vilanter 200-62.5-25 Mcg Ellipta INHALATION 1 puff DAILY ZEESHAN Administration Furosemide 40 mg 07/17/25 17:00 07/18/25 17:11 Furosemide 40 Mg Tablet PO 40 mg BID ZEESHAN Administration Guaifenesin 1,200 mg 07/18/25 21:00 07/18/25 21:23 Guaifenesin 12 Hr 600 Mg Tabcr PO 1,200 mg Q12HR ZEESHAN Administration Ceftriaxone Sodium 1 gm/ 50 mls @ 100 mls/hr 07/17/25 21:00 07/18/25 21:25 Sodium Chloride IVPB 100 mls/hr Q24H ZEESHAN Administration Doxycycline Hyclate 100 mg/ 100 mls @ 100 mls/hr 07/17/25 11:00 07/18/25 22:10 Sodium Chloride IVPB 07/21/25 11:59 100 mls/hr Q12H ZEESHAN Administration Isosorbide Mononitrate 60 mg 07/19/25 09:00 Isosorbide Mononitrate 60 Mg Tab.Er.24h PO DAILY [facility] Metoprolol Succinate 100 mg 07/17/25 21:00 07/18/25 21:24 Metoprolol Succinate Ext Rel 100 Mg Tabcr PO 100 mg Q12HR [facility] Administration Ondansetron HCl 4 mg 07/18/25 14:12 Ondansetron Inj 4 Mg/2 Ml Vial IV PUSH Q6H PRN Nausea And Vomiting Pantoprazole Sodium 40 mg 07/19/25 09:00 Pantoprazole 40 Mg Tablet PO Q12HR [facility] Potassium Chloride 10 meq 07/17/25 17:00 07/18/25 17:11 Potassium Chloride 10 Meq Er Tablet PO 10 meq BID ZEESHAN Administration Sucralfate 1 gm 07/18/25 18:00 07/19/25 05:21 Sucralfate 1 Gm Tablet PO 1 gm Q6HR ZEESHAN Administration Radiology Results: ITS Impressions Chest X-Ray 07/16/25 19:15 Impression: CHF. Superimposed probable pneumonia Labs Labs: Laboratory Results - last 24 hr 07/17/25 07/17/25 07/19/25 04:56 05:22 05:19 WBC 11.3 H RBC 4.55 Hgb 11.2 L Hct 37.5 MCV 82.4 MCH 24.6 L MCHC 29.9 L RDW 17.7 H Plt Count 338 MPV 8.8 Sodium 137 Potassium 3.7 Chloride 103 Carbon Dioxide 23 Anion Gap 11 BUN 17 Creatinine 0.68 L Estim Creat Clear Calc 59 Estimated GFR > 60 Glucose 98 Calcium 8.8 Total Bilirubin 1.1 AST 28 ALT 21 Alkaline Phosphatase 60 Total Protein 7.5 Albumin 3.9 Chlamy pneumoniae PCR Not detected Adenovirus (PCR) Not detected B. pertussis DNA (PCR) Not detected B.parapertussis DNA PCR Not detected Coronavirus OC43 (PCR) Not detected Coronavirus HKU1 (PCR) Not detected Coronavirus 229E (PCR) Not detected Coronavirus NL63 (PCR) Not detected Human Metapneumovir PCR Not detected Influenza A (H1) PCR Not detected Influ A (H1/09) PCR Not detected Influenza A (H3) PCR Not detected Influenza Type A (PCR) Not detected Influenza Type B (PCR) Not detected M.pneumoniae IgM Titer <770 M. pneumoniae (PCR) Not detected Parainfluenza 1 (PCR) Not detected Parainfluenza 2 (PCR) Not detected Parainfluenza 3 (PCR) Not detected Parainfluenza 4 (PCR) Not detected RSV (PCR) Not detected Entero/Rhino (PCR) Not detected SARS-CoV-2 (PCR) Not detected Quality VTE Prophylaxis VTE prophylaxis: pharmacologic ordered (eliquis)
[2025-07-19] MEDS: ENALAPRIL MALEATE 10 MG TABLET 20 MG PO ×2 (09:24→21:00)
[2025-07-19] MEDS: APIXABAN 5 MG TABLET PO ×2 (09:24→21:00)
[2025-07-19] MEDS: POTASSIUM CHLORIDE 10 MEQ ER TABLET PO ×2 (09:24→17:48)
[2025-07-19] MEDS: PANTOPRAZOLE 40 MG TABLET PO ×2 (09:24→21:01)
[2025-07-19] MEDS: FUROSEMIDE 40 MG TABLET PO ×2 (09:24→17:47)
[2025-07-19] MEDS: ISOSORBIDE MONONITRATE 60 MG TAB.ER.24H PO (09:24)
[2025-07-19] MEDS: FAMOTIDINE 20 MG TABLET PO ×2 (09:25→21:01)
[2025-07-19] MEDS: guaiFENesin 12 HR 600 MG TABCR 1200 MG PO ×2 (09:25→21:01)
[2025-07-19] MEDS: METOPROLOL SUCCINATE EXT REL 100 MG TABCR PO ×2 (09:25→21:02)
[2025-07-19] MEDS: FLUTICASONE PROPIONATE 0.05% NA SPR 16 GM BTL (*BKC) 1 SPRAY NASAL ×2 (09:29→21:01)
[2025-07-19] MEDS: DOXYCYCLINE IV 100 MG in SODIUM CHLORIDE 0.9% IV 100 ML IVPB ×2 (11:40→23:00)
[2025-07-19] MEDS: ATORVASTATIN 40 MG TABLET 80 MG PO (17:48)
[2025-07-19] MEDS: cefTRIAXone 1 GM in SODIUM CHLORIDE 0.9% IV 50 ML 100 ML IVPB (20:59)
[2025-07-20] VITALS (13 sets, daily range): BP systolic 143–151; BP diastolic 76–78; PULSE 60–86; RESP 16–18; TEMP 36.7–36.9; O2SAT 90–98
--- NOTE | 2025-07-20 01:21 | PC.NURSE ---
10 BEAT RUN OF [employer] NOTED WHILE [employer] WAS ON FLOOR, ORDER TO INTERROGATE PACEMAKER, PT DOES NOT KNOW WHAT KIND OF PACEMAKER BUT WILL CALL DAUGHTER IN AM
[2025-07-20] MEDS: IPRATROPIUM 0.5 MG/ALBUTEROL SULFATE 2.5 MG (BASE) AMPUL.NEB 3 ML INHALATION ×3 (01:55→14:08)
[2025-07-20 05:14] LABS: Hematocrit 36.7 % (37.0-47.0); Hemoglobin 10.9 g/dL (12.0-15.0); Mean Corpuscular HGB Conc 29.7 g/dl (32-36); Mean Corpuscular Hemoglobin 24.3 pg (26-34); Mean Corpuscular Volume 81.9 fl (80-100); Platelet Count Result 358 k/mm3 (150-375); Red Blood Count 4.48 M/mm3 (4.2-5.4); White Blood Count 8.8 K/mm3 (4.5-10.0)
[2025-07-20 05:39] LABS: Alanine Aminotransferase 22 U/L (6-35); Albumin Level 3.8 g/dL (3.5-5.1); Alkaline Phosphatase 62 U/L (38-126); Anion Gap 11 mmol/L (4-12); Aspartate Amino Transferase 31 U/L (14-36); Bilirubin,Total 1.1 mg/dL (0.2-1.3); Blood Urea Nitrogen 14 mg/dL (7-17); Calcium 8.9 mg/dL (8.4-10.2); Carbon Dioxide 21 mmol/L (22-30); Chloride 105 mmol/L (98-107); Estimated CRCL calculation 59 ml/min; Estimated Glomerular Filt Rate > 60; Glucose 102 mg/dL (65-110); Potassium 3.8 mmol/L (3.4-5.0); Sodium 137 mmol/L (137-145); Total Protein 7.4 g/dL (6.3-8.2)
[2025-07-20] MEDS: SUCRALFATE 1 GM TABLET PO ×2 (06:28→11:45)
[2025-07-20] MEDS: FLUTICASONE/UMECLIDIN/VILANTER 200-62.5-25 MCG ELLIPTA 1 PUFF INHALATION (08:31)
[2025-07-20] MEDS: ENALAPRIL MALEATE 10 MG TABLET 20 MG PO (09:22)
[2025-07-20] MEDS: ISOSORBIDE MONONITRATE 60 MG TAB.ER.24H PO (09:22)
[2025-07-20] MEDS: APIXABAN 5 MG TABLET PO (09:22)
[2025-07-20] MEDS: POTASSIUM CHLORIDE 10 MEQ ER TABLET PO (09:22)
[2025-07-20] MEDS: PANTOPRAZOLE 40 MG TABLET PO (09:22)
[2025-07-20] MEDS: guaiFENesin 12 HR 600 MG TABCR 1200 MG PO (09:22)
[2025-07-20] MEDS: FAMOTIDINE 20 MG TABLET PO (09:23)
[2025-07-20] MEDS: METOPROLOL SUCCINATE EXT REL 100 MG TABCR PO (09:23)
[2025-07-20] MEDS: FUROSEMIDE 40 MG TABLET PO (09:23)
[2025-07-20] MEDS: DOXYCYCLINE IV 100 MG in SODIUM CHLORIDE 0.9% IV 100 ML IVPB (11:45)
[2025-07-20 11:49] LABS: Magnesium 2.0 mg/dL (1.6-2.3)
--- NOTE | 2025-07-20 11:59 | PCPTNOTE ---
Patient refused PT this morning stating her mouth hurt and she wanted to watch a TV program. Educated patient on the importance of participating in PT to improve strength and mobility. Patient states she is walking in the room and will not use a walker. PT will continue to follow.
--- NOTE | 2025-07-20 14:46 | P.DS_ITS ---
DS: Admitting Diagnosis Discharge Date 07/20 Admitting Diagnosis sob DS: Discharge Diagnosis Discharge Diagnosis (1) Sepsis: Code(s): A41.9 - Sepsis, unspecified organism Status: Acute (2) Community acquired pneumonia: Code(s): J18.9 - Pneumonia, unspecified organism Status: Acute (3) Atrial fibrillation: Code(s): I48.91 - Unspecified atrial fibrillation Status: Acute (4) CHF (congestive heart failure): Code(s): I50.9 - Heart failure, unspecified Status: Acute (5) COPD (chronic obstructive pulmonary disease): Code(s): J44.9 - Chronic obstructive pulmonary disease, unspecified Status: Acute (6) Hypertension: Code(s): I10 - Essential (primary) hypertension Status: Acute (7) CAD (coronary artery disease): Code(s): I25.10 - Atherosclerotic heart disease of [place] coronary artery without angina pectoris Status: Acute DS: Summary Hospital Course Hospital Course: 85 year old female with past medical history AFib on Eliquis status post p ermanent pacemaker placement, CHF, COPD, CAD s/p stent placement, hypertension, and dyslipidemia who presented to the hospital with complaints of shortness of breath. # Sepsis # pneumonia Meets SIRS criteria: tachypnea and leukocytosis - lactic acid: 1.7 - Received sepsis bolus - suspected source: PNA - blood cultures drawn on 07/16: pending - UA: nonconcerning for infection - CXR: CHF superimposed on probable pneumonia Vitals stable. Continues to have leukocytosis. See plan below. 07/19- improving- 11.3 today # Community acquired pneumonia: CXR: CHF superimposed on probable pneumonia - started on CAP tx: Rocephin and doxycycline on 07/17- downgraded to PO antibiotics today in anticipation of discharge - Viral PCR: negative for Flu/COVID/RSV - Respiratory panel - Sputum sample collected-peneidn - Legionella, mycoplasma and pneumococcal pending - started on o2 supplementation on admission however no noted hypoxia on chart review, has since been weaned back to room air with stable sats - Duonebs q6- will order for home use as needed-rx sent - IS and PEP therapy - Mucinex 1200 mg BID-will continue on discharge # Atrial fibrillation: S/p permanent pacemaker - EKG: paced HR 73 - Current home medication: metoprolol 100 mg daily and eliquis 5 mg q12 # CHF (congestive heart failure): - Chest XR: CHF superimposed on pneumonia - Continue lasix 40 mg BID # COPD (chronic obstructive pulmonary disease): Chronic, per patient she previously required 2L NC at all times but the oxygen became too expensive and she stopped using it She has since been following pulmonology Dr. Power at [facility], last seen on 07/10 and told she does not need o2 any more Does not appear in acute exacerbation # Hypertension: Chronic Continue metoprolol 100 mg daily, enalapril 20 mg q12h, lasix 40 mg BID, imdur 60 mg daily Blood pressures reviewed and remain stable, continue to monitor # CAD (coronary artery disease): s/p stent placement Continue plavix 75 mg daily Time Spent with Patient Time attestation: Total time spent providing and/or coordinating discharge services: Exam Narrative: AF HR 70 RR 14 SPO2 96 BP 145/68 General: female in no acute respiratory distress who is nontoxic appearing, sitting up in chair HEENT: Normocephalic. Atraumatic. Extraocular movement intact. Sclera clear and anicteric. No facial asymmetry. Chest: Lungs are coarse to the bases to auscultation bilaterally. No wheezes. Speaking full sentences. CV: Heart was regular rate and rhythm. Abd: Abdomen was soft. Nontender. Nondistended. Positive bowel sounds. Ext: No clubbing, cyanosis, or edema. DP pulses bilaterally. Neuro: Patient is alert and oriented x3. Speech is clear. Const: General: comfortable and no acute distress HENMT: Mouth: Yes moist mucous membranes Eyes: Pupils: Equal, round and reactive pupils present Neck: Neck: supple Resp: Effort & Inspection: normal respiratory effort Other: Fine bibasilar crackles Cardio: Rate: regular rate Rhythm: regular rhythm GI: Inspection: non-distended Neuro: Cranial nerves: Yes Equal, round and reactive pupils present Motor exam (neuro): 5/5 motor strength present throughout Extrem: General: no edema DS: Data Data Completed and Pending Labs on day of discharge: Labs from last 24 hours 07/20/25 04:41 WBC 8.8 RBC 4.48 Hgb 10.9 L Hct 36.7 L MCV 81.9 MCH 24.3 L MCHC 29.7 L RDW 17.5 H Plt Count 358 MPV 9.0 Sodium 137 Potassium 3.8 Chloride 105 Carbon Dioxide 21 L Anion Gap 11 BUN 14 Creatinine 0.68 L Estim Creat Clear Calc 59 Estimated GFR > 60 Glucose 102 Calcium 8.9 Magnesium 2.0 Total Bilirubin 1.1 AST 31 ALT 22 Alkaline Phosphatase 62 Total Protein 7.4 Albumin 3.8 Preliminary micro results at discharge 07/16/25 21:12 Blood Culture - Preliminary Blood 07/16/25 20:37 Blood Culture - Preliminary Blood 07/17/25 04:57 Sputum Culture - Preliminary Sputum Discharge Plan Discharge Attending physician on discharge: Judah Wray Consulting providers: Ifrah Wray Discharging Clinician: Amparo Arias Patient Disposition: Home with Home Health Service Activity: december shower Diet: heart healthy Discharge Instructions: Per Care Coordination: [facility] ([phone]) will call to set up initial visit. Please take antibiotics as prescribed. Use breathing treatment at home if needed. F/u with PCP within 1 week after discharge. If you develop shortness of breath, chest pain and/or any other new symptoms, please return to ER right away. In your chart, it is noted that you take plavix as you had stents in the past. Please f/u with parimutuel cashier to clarify your Plavix. Patient Instructions: Antibiotic Form, Apixaban (By mouth), Heart Failure (GEN), Blood Thinners (GEN) Patient Language: Yoruba Stand Alone Forms: General Discharge Information Follow-up/Referrals: Yg,Giles Collins MD [Primary Care Provider] - 2 Weeks Discharge Medications: New (DME) nebulizer and compressor Device See Rx Instructions .Route Qty: 1 0RF Rx Instructions: As directed ipratropium-albuterol 0.5 mg-3 mg(2.5 mg base)/3 mL Solution For Nebulization 3 ml inhalation Q6HRT Qty: 90 0RF guaifenesin [Mucus Relief ER] 600 mg Tablet Extended Release 12hr 1,200 mg PO Q12HR Qty: 30 0RF doxycycline monohydrate 100 mg tablet 100 mg PO BID 3 Days Qty: 6 0RF amoxicillin-pot clavulanate 875-125 mg tablet 1 tablet PO Q12H Qty: 6 0RF Continued furosemide 40 mg tablet 40 mg PO BID atorvastatin 40 mg tablet 80 mg PO QPM potassium chloride 10 mEq capsule, extended release 10 meq PO BID enalapril maleate 20 mg tablet 20 mg PO Q12H sucralfate 1 gram tablet 1 g PO Q6H metoprolol succinate 100 mg tablet extended release 24 hr 100 mg PO Q12H amlodipine 5 mg tablet 5 mg PO DAILY isosorbide mononitrate 60 mg tablet extended release 24 hr 60 mg PO DAILY pantoprazole 40 mg tablet,delayed release (DR/EC) 40 mg PO BID albuterol sulfate 90 mcg/actuation HFA aerosol inhaler 2 puff INHALATION Q4H PRN (Reason: shortness of breath or wheezing) Eliquis 5 mg tablet 5 mg PO Q12H Trelegy Ellipta 200-62.5-25 mcg blister with device 1 inh INHALATION Q24H triamcinolone acetonide 0.1 % cream 1 applic topical BID 7 Days Qty: 80 0RF famotidine 20 mg tablet 20 mg PO BID Qty: 7 0RF calcium carbonate-vitamin D3 [Calcium 600 + D(3)] 600 mg-5 mcg (200 unit) tablet 1 tablet PO DAILY clopidogrel 75 mg tablet 75 mg PO DAILY cranberry 500 mg capsule 500 mg PO DAILY Rx Instructions: administer with a meal nitroglycerin 0.4 mg tablet, sublingual 0.4 mg sublingual Q5-15M PRN (Reason: chest pain) Rx Instructions: do not exceed 3 doses per episode Date of admission: 07/16/25 23:33 Primary Care Provider: YgGiles Admitting Provider: Destiney Tubbs Attending physician on admission: Destiney Tubbs Condition: Stable Quality VTE Prophylaxis VTE prophylaxis: pharmacologic ordered (eliquis) Hospitalist MIPS Heart Failure (Exclusion) Patient has history of Heart Transplant or Left Ventricular Assistive Device?: No IF YES, STOP HERE Heart Failure (Qualifier) Patient has current or prior documentation of LVEF less than or equal to 40%, or mod/servere depressed LVSF?: No IF NO, STOP HERE
== END 2025-07-20 15:45 | disposition home health service (06) | DRG 871 ==
LOC: ANHED 23:33 → ANH3MEDSUR 07-17 00:08 → ANH2MED 07-17 09:33
PROVIDERS: Family Medicine; Student in an Organized Health Care Education/Training Program; Admitting Provider General Practice; Emergency Provider Emergency Medicine; PCP Family Medicine Sports Medicine; Visit Provider Nurse Practitioner
DX: A41.9 Sepsis, unspecified organism (principal); J18.9 Pneumonia, unspecified organism; J96.91 Respiratory failure, unspecified with hypoxia; J44.0 Chronic obstructive pulmonary disease with (acute) lower respiratory infection; I11.0 Hypertensive heart disease with heart failure; I50.9 Heart failure, unspecified; E86.0 Dehydration; I48.91 Unspecified atrial fibrillation; Z20.822 Contact with and (suspected) exposure to COVID-19; E78.00 Pure hypercholesterolemia, unspecified; Z95.0 Presence of cardiac pacemaker; Z79.01 Long term (current) use of anticoagulants; Z95.5 Presence of coronary angioplasty implant and graft; Z79.02 Long term (current) use of antithrombotics/antiplatelets; Z87.891 Personal history of nicotine dependence
CPT/HCPCS: 36415; 71046; 80048; 80053; 81001; 83605; 83690; 83735; 84484; 85025; 85027; 85610; 85730; 86140; 86738; 87040; 87070; 87186; 87205; 87449; 87493; 87633; 87637; 87651; 87899; 93005; 94640; 94667; 94668; 96365; 96367; 97116; 97161; 97166; 97530; 97535; 99285; A9270; J0696; J7120